=== PATIENT | male | born 1970 | race Caucasian/White ===

== ENCOUNTER 2016-08-11 23:36 | Emergency (ER) | payer OTHER ==
[~2016-08-11] VITALS: Ht 172.7 cm; Wt 81.6 kg
[~2016-08-11 23:36] MED LIST: FLVHFA220 INH; NTRSLP4 SL
[2016-08-11] MEDS ORDERED: LIDOCAINE HCL 2% VISC SOLN 20 ML UDC PO STA (23:41)
[2016-08-11] MEDS ORDERED: ALUMINUM/MAGNESIUM SUSP 30 ML UDC PO STA (23:41)
[2016-08-11] MEDS ORDERED: ONDANSETRON INJ 2 MG/ML 2 ML VIAL IV STA (23:46)
[2016-08-11] MEDS ORDERED: MoRPHine SULFATE 4 MG/ML 1 ML CARP\\VIAL IV STA (23:46)
[2016-08-11] MEDS ORDERED: SODIUM CHLORIDE 0.9% 1000ML 1,000 ML IV STA ×2 (23:46)
[2016-08-11 23:48] VITALS: Ht 172.7 cm; Wt 81.6 kg
[2016-08-11 23:56] LABS: BASO % 0.7 %; BASO ABS # 0.06 K/uL (0-0.2); COMPLETE YES; EOS % 1.7 %; HEMATOCRIT 44.4 % (42-52); IG% 0.2 %; LYMPH % 26.6 %; MEAN CELL VOLUME 86.4 fL (80-100); MEAN CORPUSCULAR HEMOGLOBIN 31.3 pg (25-34); MEAN CORPUSCULAR HGB CONC 36.3 g/dl (32-36); MEAN PLATELET VOLUME 8.9 fL (7.4-10.4); MONO % 6.1 %; NEUT % 64.7 %; PLATELET COUNT 384 K/uL (130-400); RED BLOOD COUNT 5.14 M/uL (4.7-6.1); WHITE BLOOD COUNT 9.02 K/uL (4.8-10.8)
[2016-08-12 00:05] LABS: PARTIAL THROMBOPLASTIN RATIO 0.9; PROTHROMBIN TIME (PATIENT) 10.7 SECONDS (9.0-12.0)
[2016-08-12 00:11] LABS: ISTAT CREATININE 0.8 mg/dl (0.6-1.3); ISTAT IONIZED CALCIUM 1.15 mmol/l (1.12-1.32)
[2016-08-12] MEDS ORDERED: OPTIRAY 320 IV PRN (00:15)
[2016-08-12 00:17] LABS: ALT/SGPT 25 U/L (12-78); AST/SGOT 9 U/L (15-37); BLOOD UREA NITROGEN 10 mg/dl (7-18); BUN/CREATININE RATIO 10.1 (10-20); CALCIUM 9.1 mg/dl (8.5-10.1); CARBON DIOXIDE 25 mmol/L (21-32); CHLORIDE 106 mmol/L (98-107); GLUCOSE 80 mg/dl (70-99); POTASSIUM 3.1 mmol/L (3.5-5.1); SODIUM 144 mmol/L (136-145)
[2016-08-12 00:22] LABS: ALKALINE PHOSPHATASE 64 U/L (45-117)
[2016-08-12] MEDS ORDERED: LIDOCAINE HCL 2% VISC SOLN 20 ML UDC PO STA (01:21)
[2016-08-12] MEDS ORDERED: POTASSIUM CHLORIDE 10 MEQ TABCR PO STA (01:21)
[2016-08-12] MEDS ORDERED: ALUMINUM/MAGNESIUM SUSP 30 ML UDC PO STA (01:21)
[2016-08-12] MEDS ORDERED: SUCRALFATE 1 GM/10 ML UDC PO STA (01:56)
[2016-08-12] MEDS ORDERED: PANTOprazole INJ 40 MG in SYRINGE 0 ML IV ONE (02:00)
[2016-08-12] MEDS ORDERED: MoRPHine SULFATE 4 MG/ML 1 ML CARP\\VIAL IV STA (03:34)
[2016-08-12] MEDS ORDERED: ONDANSETRON HOME PACK 4MG OD TAB PO ONE (04:45)
[2016-08-12] MEDS ORDERED: OXYCODONE IR HOME PACK PO ONE (04:45)
[2016-08-12] MEDS ORDERED: SUCRALFATE 1 GM/10 ML UDC PO ONE (04:45)
--- NOTE | 2016-08-12 04:49 | EMERGENCY ROOM VISIT NOTE ---
History First contact with patient: 23:40 Chief Complaint: CHEST PAIN Stated Complaint: CHEST PAIN Nursing Triage Summary: Pt woke up and started to complain of chest pains around 2129. Pt rated 8/10 as a squeezing chest pain radiating to back and right arm. Pt stated he started dry heaving. Pt has history of esophagitis. Pt was given 4mg zofran, 325 ASA and 1 nitro for EMS. History of Present Illness The patient is a 46 year old male who presents to the Emergency Room with complaints of severe sudden onset of midsternal chest pain that radiates to his back with nausea and dry heaves for the past few hours. Patient has esophagitis and follows with Dr. Sue. His last EGD showed severe esophagitis. He has not missed any of his doses. He continues to smoke. He describes the pain as severe, 9 out of 10. Nothing makes it better or worse. Patient denies fever, chills, dyspnea, abdominal pain, diarrhea, leg pain or swelling, arm pain, neck pain, jaw pain. No black or blood in the vomit. No recent stress test or echocardiogram. No recent travel. No leg pain or swelling. Review of Systems See HPI for pertinent positives & negatives. A total of 10 systems reviewed and were otherwise negative. Past Medical/Surgical History Medical Problems: (1) bleeding problems (2) Eosinophilic esophagitis (3) Gallbladder problem (4) Hypertension (5) Renal infarct (6) Stomach problems (7) ulcers Surgical Problems: (1) Hx of cholecystectomy Family History Diabetes mellitus FH: cancer FH: heart disease FH: lung disease Hypertension Social History Smoking Status: Current Every Day Smoker Alcohol Use: occasionally Drug Use: none Marital Status: Housing Status: lives with family Occupation Status: employed Current/Historical Medications Scheduled Citalopram Hydrobromide (Citalopram Hydrobromide), 40 MG PO DAILY Lisinopril (Zestril), 20 MG PO DAILY Multivitamin (Multivitamin), 1 TABLET PO DAILY Pantoprazole Sodium (Protonix), 40 MG PO BID Ranitidine (Zantac), 150 MG PO BID Scheduled PRN Nitroglycerin (Nitrostat), 0.4 MG SL Q6H PRN for Heartburn Oxycodone Hcl (Oxycodone Hcl), 10 TAB PO QID PRN for Pain Allergies Coded Allergies: Clindamycin (Verified Allergy, Severe, swelling; wheezing, 08/12/16) Penicillins (Verified Allergy, Unknown, `, 08/12/16) Physical Exam Vital Signs Date Time Temp Pulse Resp B/P Pulse Ox O2 Delivery O2 Flow Rate FiO2 08/12/16 04:00 70 15 137/88 96 Room Air 08/12/16 03:58 08/12/16 03:30 68 15 97 08/12/16 03:28 147/99 08/12/16 03:10 68 08/12/16 03:00 58 16 98 08/12/16 02:58 126/87 08/12/16 02:30 61 12 97 08/12/16 02:28 125/85 08/12/16 02:00 66 14 97 08/12/16 02:00 67 18 128/83 99 Room Air 08/12/16 01:00 53 18 132/68 99 Room Air 08/11/16 23:49 90 08/11/16 23:48 36.9 84 18 138/95 99 Room Air 08/11/16 23:48 99 Room Air 08/11/16 23:48 Room Air 08/11/16 23:48 Room Air Physical Exam VITALS: Vitals are noted on the nurse's note and reviewed by myself. Vital signs stable. GENERAL: White male in obvious pain, nondiaphoretic, well-developed well- nourished. SKIN: The skin was without rashes, erythema, edema, or bruising. There is no tenting of the skin. Capillary reflex less than 2 seconds. HEAD: Normocephalic atraumatic. EARS: External auditory canals clear, tympanic membranes pearly maddox without erythema or effusion bilaterally. EYES: Pupils equal round and reactive to light and accommodation. Conjunctivae without injection, sclerae without icterus. Extraocular movements intact. NOSE: Patent, turbinates without inflammation or discharge. MOUTH: Mucous membranes mildly dry. Pharynx without erythema or exudate. Uvula midline. Airway patent. Tongue does not deviate. NECK: Supple without nuchal rigidity. No lymphadenopathy. No thyromegaly. Cervical spine is nontender. No JVD. HEART: Regular rate and rhythm nontender to palpation LUNGS: Clear to auscultation bilaterally without wheezes, rales or rhonchi. No dullness to percussion. No retractions or accessory muscle use. ABDOMEN: Positive bowel sounds x 4. Normal tympanic percussion. Soft, nontender, without masses or organomegaly. Pedraza sign negative. No guarding or rebound tenderness. MUSCULOSKELETAL: No muscle atrophy, erythema, or edema noted. NEURO: Patient was alert and oriented to person place and time. Normal sensation to light and sharp touch. No focal neurological deficits. Medical Decision & Procedures Laboratory Results 08/11/16 23:37 Red Blood Count 5.14, Mean Corpuscular Volume 86.4, Mean Corpuscular Hemoglobin 31.3, Mean Corpuscular Hemoglobin Concent 36.3, Mean Platelet Volume 8.9, Neutrophils (%) (Auto) 64.7, Lymphocytes (%) (Auto) 26.6, Monocytes (%) (Auto) 6.1, Eosinophils (%) (Auto) 1.7, Basophils (%) (Auto) 0.7, Neutrophils # (Auto) 5.84, Lymphocytes # (Auto) 2.40, Monocytes # (Auto) 0.55, Eosinophils # (Auto) 0.15, Basophils # (Auto) 0.06 08/11/16 23:37 Test 08/11/16 23:37 08/11/16 23:45 08/12/16 03:24 White Blood Count 9.02 K/uL (4.8-10.8) Red Blood Count 5.14 M/uL (4.7-6.1) Hemoglobin 16.1 g/dL (14.0-18.0) Hematocrit 44.4 % (42-52) Mean Corpuscular Volume 86.4 fL (80-100) Mean Corpuscular Hemoglobin 31.3 pg (25-34) Mean Corpuscular Hemoglobin Concent 36.3 g/dl (32-36) Platelet Count 384 K/uL (130-400) Mean Platelet Volume 8.9 fL (7.4-10.4) Neutrophils (%) (Auto) 64.7 % Lymphocytes (%) (Auto) 26.6 % Monocytes (%) (Auto) 6.1 % Eosinophils (%) (Auto) 1.7 % Basophils (%) (Auto) 0.7 % Neutrophils # (Auto) 5.84 K/uL (1.4-6.5) Lymphocytes # (Auto) 2.40 K/uL (1.2-3.4) Monocytes # (Auto) 0.55 K/uL (0.11-0.59) Eosinophils # (Auto) 0.15 K/uL (0-0.5) Basophils # (Auto) 0.06 K/uL (0-0.2) RDW Standard Deviation 40.7 fL (36.4-46.3) RDW Coefficient of Variation 12.7 % (11.5-14.5) Immature Granulocyte % (Auto) 0.2 % Immature Granulocyte # (Auto) 0.02 K/uL (0.00-0.02) Prothrombin Time 10.7 SECONDS (9.0-12.0) Prothromb Time International Ratio 1.0 (0.9-1.1) Activated Partial Thromboplast Time 23.7 SECONDS (21.0-31.0) Partial Thromboplastin Ratio 0.9 Est Creatinine Clear Calc Drug Dose 88.3 ml/min Estimated GFR () 103.4 Estimated GFR (Non- 89.2 BUN/Creatinine Ratio 10.1 (10-20) Calcium Level 9.1 mg/dl (8.5-10.1) Total Bilirubin 0.4 mg/dl (0.2-1) Direct Bilirubin < 0.1 mg/dl (0-0.2) Aspartate Amino Transf (AST/SGOT) 9 U/L (15-37) Alanine Aminotransferase (ALT/SGPT) 25 U/L (12-78) Alkaline Phosphatase 64 U/L (45-117) Total Creatine Kinase 56 U/L (39-308) Creatine Kinase MB < 0.5 ng/ml (0.5-3.6) Creatine Kinase MB Ratio (0-3.0) Total Protein 7.8 gm/dl (6.4-8.2) Albumin 4.0 gm/dl (3.4-5.0) Lipase 361 U/L (73-393) Bedside Hemoglobin 16.0 g/dl (14.0-18.0) Bedside Hematocrit 47 % (42-52) Bedside Sodium 142 mEq/L (135-144) Bedside Potassium 3.0 mEq/L (3.3-5.0) Bedside Chloride 102 mEq/L (101-112) Bedside Total CO2 23 mEq/l (24-31) Anion Gap 21.0 mmol/L (16-25) Bedside Blood Urea Nitrogen 10 mg/dl (7-18) Bedside Creatinine 0.8 mg/dl (0.6-1.3) Bedside Glucose (other) 85 mg/dl (70-99) Bedside Ionized Calcium (Peng) 1.15 mmol/l (1.12-1.32) Troponin I < 0.015 ng/ml (0-0.045) Medications Administered Medications (Trade) Dose Ordered Sig/Mandy Route Start Time Stop Time Status Last Admin Dose Admin Morphine Sulfate (MoRPHine SULFATE INJ) 4 mg NOW STAT IV 08/11/16 23:46 08/11/16 23:49 DC 08/12/16 00:40 4 MG Ondansetron HCl 4 mg 4 mg NOW STAT IV 08/11/16 23:46 08/11/16 23:49 DC 08/12/16 00:40 4 MG Sodium Chloride 1,000 ml @ 999 mls/hr Q1H1M STAT IV 08/11/16 23:46 08/12/16 00:46 DC 08/12/16 00:40 999 MLS/HR Sodium Chloride (Nss 1000ml) 1,000 ml @ 125 mls/hr Q8H STAT IV 08/11/16 23:46 08/12/16 07:45 08/12/16 00:41 125 MLS/HR Lidocaine HCl (Viscous Lidocaine 2% Soln) 10 ml NOW STAT PO 08/12/16 01:21 08/12/16 01:22 DC 08/12/16 01:50 10 ML Al Hydroxide/Mg Hydroxide (Maalox Susp) 30 ml NOW STAT PO 08/12/16 01:21 08/12/16 01:22 DC 08/12/16 01:50 30 ML Potassium Chloride (Klor-Con M10) 40 meq NOW STAT PO 08/12/16 01:21 08/12/16 01:22 DC 08/12/16 01:50 40 MEQ Sucralfate 1 gm 1 gm NOW STAT PO 08/12/16 01:56 08/12/16 01:58 DC 08/12/16 02:15 1 GM Pantoprazole Sodium/Syringe (Protonix Inj/ Syringe) 10 ml @ 5 mls/min NOW ONCE IV 08/12/16 02:00 08/12/16 02:01 DC 08/12/16 02:14 5 MLS/MIN Morphine Sulfate (MoRPHine SULFATE INJ) 4 mg NOW STAT IV 08/12/16 03:34 08/12/16 03:35 DC 08/12/16 03:51 4 MG ED Course Prior records/ancillary studies reviewed. Triage Nursing notes reviewed. Additional history obtained from EMS. The patient's history was concerning for chest pain. Differential diagnosis: Etiologies such as cardiac ischemia, aortic dissection, pulmonary embolism, pneumonia, pneumothorax, musculoskeletal, infections, pericarditis, myocarditis , esophageal rupture, gastrointestinal, as well as others were entertained. Physical examination: As above. ER treatment provided: Morphine, Zofran, IV fluids On reassessment the patient felt better. Diagnostic interpretation by me: The electrocardiogram was negative for pathologic change. Normal sinus, normal intervals, no acute ST-T wave changes. Impression normal sinus rhythm interpreted by myself The labs revealed hypokalemia and this is replaced orally. Stable H&H Negative Troponin 2 3 hours prior Imaging studies: Chest x-ray with no acute consolidation, free air or pneumothorax per my interpretation CTA CHEST: Compared to 01/29/16. No evidence of aortic aneurysm or dissection. Suboptimal bolus timing for the evaluation of PE. No large central PE is identified. Mild mid-distal esophageal wall thickening. Correlate clinically for possibility of esophagitis. Minor atelectatic changes. No pneumothorax or pleural effusion. Additional incidental findings similar to prior study. Radiologist: Daphne Kumar M.D. Exam and history seem consistent with patient's known esophagitis. He states he 's done well with Carafate in the past. He was advised to take this for the week. He was strongly encouraged to quit smoking. He was advised at 8 AM this morning to call his GI DrSantosh for follow-up this week. He was advised to return to the ER me the for chest pain, difficulty breathing, black or blood in the stool, worsening signs or symptoms or as needed. Patient had 2 negative troponins 3 hours apart. Normal EKG. Negative CTA. By the evaluation outlined above emergent etiologies such as cardiac ischemia, aortic dissection, pulmonary embolism, pneumonia, pneumothorax, infections, pericarditis, myocarditis, gastrointestinal, as well as others were deemed relatively unlikely. The pt informed about the findings as listed above. All questions were answered and pleased with the treatment. Return instructions were outlined and the patient was discharged in stable condition. Outpatient prescription management: Carafate Referral: The patient was referred back to GI and primary care physician for follow-up in 2 to 3 days for a recheck of the current condition. Case reviewed with my attending Medical Decision As above Impression Primary Impression: Esophagitis Departure Information Dispostion Home / Self-Care Condition GOOD Referrals Donald Velazquez D.O. (PCP) Patient Instructions [facility] Additional Instructions DO NOT drive, drink alcohol, operate machinery, or perform dangerous activities today. You were given medications in the ER that can affect your ability to safely function or operate a vehicle. Carafate 1 g 4 times a day for one week. Recommend that you stop smoking. You need to update your EGD. Zofran(odansetron) tablets 4mg: Take one and allow it to dissolve in your mouth every four to six hours as needed for nausea or vomiting. Oxycodone (OxyIR) 5mg: Take 1-2 pills every four hours for breakthrough pain. Avoid alcohol, operating machinery or dangerous equipment, working on ladders or roofs, DRIVING, or situations where being under the influence may be dangerous. It is recommended to use an [id number] stool softener such as Colace, 100mg twice daily while taking this medication to avoid constipation. Acetaminophen(Tylenol) may be used for fever or pain. Use 1000mg every six hours as needed. Avoid using more than 4000mg in a 24 hour period. Rest and drink plenty of fluids as tolerated. Continue current medications. Avoid strenuous activities and anything that worsens your pain. Resume normal activities once your symptoms resolve. Return to the ER immediately for worsening or persistent chest pain, abdominal pain, vomiting, fevers, black or blood in her stool, difficulty breathing, worsening of your condition, or as needed. Follow up with your [employer] sales consultant in 2-3 days for a recheck of your current condition. Call this morning at 8 AM for a follow-up appointment.
[2016-08-12] MEDS ORDERED: CRFL PO (04:50)
[2016-08-12 05:05] VITALS: BP 130/82; PULSE 64; TEMP 36.9; O2SAT 96
--- NOTE | 2016-08-12 06:42 | DIAGNOSTIC IMAGING REPORT ---
CHEST ONE VIEW PORTABLE CLINICAL HISTORY: Chest pain. COMPARISON STUDY: Chest radiograph and chest CT February 08, 2016. FINDINGS: Lung volumes are normal. Lungs are clear. No pneumothorax or pleural effusion is present. Cardiac size is normal. Mediastinal contours are normal. There is no evidence of pulmonary edema. Mild S-shaped scoliosis of the thoracolumbar spine is incidentally noted. IMPRESSION: No acute cardiopulmonary findings. Electronically signed by: Joseph Macdonald M.D. 08/12/2016 6:41 AM Dictated Date/Time: 08/12/2016 6:40 AM
--- NOTE | 2016-08-12 07:03 | DIAGNOSTIC IMAGING REPORT ---
CT CHEST COMBO ANGIO DISSECTION CLINICAL HISTORY: Severe chest pain radiating to the back. Possible dissection. COMPARISON STUDY: Chest x-ray dated 08/11/2016, CT angiography the chest dated 02/08/2016 FINDINGS: Unenhanced images were obtained through the chest. The patient was then scanned in a dynamic helical fashion during intravenous administration of 91 cc of Optiray 320. There is no evidence of acute aortic hematoma. The thyroid gland is unremarkable. There is no evidence of thoracic aortic aneurysm or dissection. There are no pathologically enlarged axillary, mediastinal, or hilar lymph nodes. There are no pleural effusions. There is no focal pulmonary consolidation. There is borderline esophageal wall thickening. IMPRESSION: 1. No CT evidence of aortic aneurysm or dissection 2. No evidence of focal pulmonary consolidation. No pleural effusions. 3. No pneumothorax 4. No evidence of pathologic adenopathy 5. Borderline mild esophageal wall thickening Electronically signed by: Nirav Kemp M.D. 08/12/2016 7:02 AM Dictated Date/Time: 08/12/2016 6:59 AM
[2016-08-13] MEDS ORDERED: OXYC-164 PO (14:22)
[2016-08-13] MEDS ORDERED: CITA40TA4 PO (16:04)
[2016-08-13] MEDS ORDERED: LISI-792 PO (16:07)
[2016-08-13] MEDS ORDERED: PANT40TA PO (17:35)
[2016-08-13] MEDS ORDERED: ZNTT/150 PO (17:38)
[2016-08-13] MEDS ORDERED: MULT-506 PO (18:17)
[2016-08-14] MEDS ORDERED: CRFL PO (12:29)
[2016-09-11] MEDS ORDERED: SUCR5SUS PO (13:51)
== END 2016-08-12 05:06 | disposition home or self-care (01) ==
LOC: EDBD 23:36 → C.EDB 23:38
DX: K20.9 Esophagitis, unspecified (principal); R07.9 Chest pain, unspecified; F17.210 Nicotine dependence, cigarettes, uncomplicated; I10 Essential (primary) hypertension

== ENCOUNTER 2016-08-13 14:50 | Observation (INO) | payer OTHER ==
[~2016-08-13] VITALS: Ht 172.7 cm; Wt 80.3 kg
[~2016-08-13 14:50] MED LIST changes: +CRFL PO; -FLVHFA220 INH; +OXYC-164 PO
[2016-08-13] MEDS ORDERED: MoRPHine SULFATE 10 MG/ML CARP/VIAL IV STA ×2 (15:25→16:02)
[2016-08-13] MEDS ORDERED: GI COCKTAIL PO STA (15:25)
[2016-08-13] MEDS ORDERED: ONDANSETRON INJ 2 MG/ML 2 ML VIAL IV STA (15:25)
[2016-08-13] MEDS ORDERED: SODIUM CHLORIDE 0.9% 1000ML 1,000 ML IV STA (15:25)
[2016-08-13] MEDS ORDERED: MoRPHine SULFATE 4 MG/ML 1 ML CARP\\VIAL ONE ×2 (15:30→16:16)
[2016-08-13] MEDS ORDERED: LIDOCAINE HCL 2% VISC SOLN 20 ML UDC ONE (15:30)
[2016-08-13] MEDS ORDERED: ALUMINUM/MAGNESIUM SUSP 30 ML UDC ONE (15:30)
--- NOTE | 2016-08-13 15:39 | DIAGNOSTIC IMAGING REPORT ---
CHEST ONE VIEW PORTABLE CLINICAL HISTORY: Atypical chest pain COMPARISON STUDY: 08/11/2016 FINDINGS: The cardiac and mediastinal contours are normal. There is no evidence of focal pulmonary consolidation. There is no evidence of failure. No pleural effusions are visualized.[ IMPRESSION: No active disease in the chest. Electronically signed by: Nirav Kemp M.D. 08/13/2016 3:38 PM Dictated Date/Time: 08/13/2016 3:38 PM
[2016-08-13 15:55] LABS: BASO % 0.8 %; BASO ABS # 0.06 K/uL (0-0.2); COMPLETE YES; EOS % 1.9 %; HEMATOCRIT 47.8 % (42-52); IG% 0.4 %; LYMPH % 30.8 %; LYMPH ABS # 2.46 K/uL (1.2-3.4); MEAN CELL VOLUME 88.7 fL (80-100); MEAN CORPUSCULAR HEMOGLOBIN 31.7 pg (25-34); MEAN CORPUSCULAR HGB CONC 35.8 g/dl (32-36); MEAN PLATELET VOLUME 9.1 fL (7.4-10.4); MONO % 4.8 %; NEUT % 61.3 %; PLATELET COUNT 422 K/uL (130-400); RED BLOOD COUNT 5.39 M/uL (4.7-6.1); WHITE BLOOD COUNT 7.98 K/uL (4.8-10.8)
[2016-08-13] MEDS ORDERED: CITA40TA4 PO (16:04)
[2016-08-13] MEDS ORDERED: LISI-792 PO (16:07)
[2016-08-13] MEDS ORDERED: MoRPHine SULFATE 2 MG/ML CARP ONE (16:15)
[2016-08-13 16:18] LABS: BLOOD UREA NITROGEN 11 mg/dl (7-18); BUN/CREATININE RATIO 8.9 (10-20); CALCIUM 9.8 mg/dl (8.5-10.1); CARBON DIOXIDE 26 mmol/L (21-32); CHLORIDE 106 mmol/L (98-107); GLUCOSE 73 mg/dl (70-99); POTASSIUM 3.9 mmol/L (3.5-5.1); SODIUM 142 mmol/L (136-145)
[2016-08-13 16:41] LABS: CKMB/CK RATIO 1.3 (0-3.0)
[2016-08-13] MEDS ORDERED: PANT40TA PO (17:35)
[2016-08-13] MEDS ORDERED: ZNTT/150 PO (17:38)
[2016-08-13] MEDS ORDERED: NITROGLYCERIN 0.4 MG SL PER TAB CHARGE SL PRN (17:45)
[2016-08-13] MEDS ORDERED: GI COCKTAIL PO PRN (17:45)
[2016-08-13] MEDS ORDERED: ACETAMINOPHEN 325 MG TAB PO PRN (17:45)
[2016-08-13] MEDS ORDERED: ONDANSETRON INJ 2 MG/ML 2 ML VIAL IV PRN (17:45)
[2016-08-13] MEDS ORDERED: MAGNESIUM HYDROXIDE SUSP 30 ML UDC PO PRN (17:45)
[2016-08-13] MEDS ORDERED: POLYETHYLENE (MIRALAX) 17 GM PACK PO PRN (17:45)
[2016-08-13 17:47] VITALS: Ht 172.7 cm; Wt 80.3 kg
--- NOTE | 2016-08-13 17:49 | History and Physical ---
History & Physical Date & Time of Service: Aug 13, 2016 at 17:46 Chief Complaint: Chest Pain, Esphogus Pain Primary Care Physician: Donald Velazquez D.O. History of Present Illness Source: patient The patient is a 46 year old male who presents to the Emergency Room with complaints of chest tightness today. Patient is a known case of severe esophagitis on protonix, ranitidine, sucralfate. Has had multiple ER visits /admissions for chest pain/Esophagitis. EGD X 2- 03/07, 04/06- Moderate to severe esophagitis (Erosive /Exudative) with pathology- heavily inflamed mucosa. Has also had esophageal dilations in past. Follows up with GI outpatient and scheduled for visit next week. . Recent ED visit 2 days ago when he was discharged with recommendation of restarting sucralfate. Troponin, EKG, CT scan to rule out dissection were all normal and thus was discharged with recommendations of follow up with GI in 2-3 days Per patient, he has always had chronic symptoms of difficulty swallowing, issues with food getting stuck, heart burn, chest tightness/pain and has learned to manage by taking care of his diet. Continues to smoke and has been cutting down. Two days ago came with chest pain with radiation to back, nausea. Today after he had sausage it got stuck in chest and after 2 hours of drinking liquids was able to get it down. Following this event, he had chest tightness, squeezing pain , similar to what he has had in past. Associated symptoms - nausea. No vomiting, epigastric pain, heart burn, reflux symptoms associated. No SOB, Diaphoresis, palpitations, cough, fever, chills. In ED, currently he is chest pain free and feeling better. Received IV Morphine 8 mg, GI cocktail and zofran in ED. CXR- no acute abnormalities, Labs- no acute abnormalities, EKG- no acute ST changes. ER physician did try to contact Dr Sue. Will admit him for uncontrolled esophagitis symptoms with re visit to ED in 2 days. . Past Medical/Surgical History Medical Problems: (1) bleeding problems Status: Chronic (2) Gallbladder problem Status: Chronic (3) Hypertension Status: Chronic (4) Renal infarct Status: Resolved (5) Stomach problems Status: Chronic (6) ulcers Status: Chronic Surgical Problems: (1) Hx of cholecystectomy Status: Chronic Family History Diabetes mellitus FH: cancer FH: heart disease FH: lung disease Hypertension Social History Smoking Status: Current Every Day Smoker Drug Use: none Marital Status: Occupational Status: employed Immunizations History of Influenza Vaccine: Yes Influenza Vaccine Date: Jun 01, 2013 History of Tetanus Vaccine?: UNSURE History of Pneumococcal: No History of Hepatitis B Vaccine: No Multi-Drug Resistant Organisms History of MDRO: No Allergies Coded Allergies: Clindamycin (Verified Allergy, Severe, swelling; wheezing, 08/12/16) Penicillins (Verified Allergy, Unknown, `, 08/12/16) Home Medications Scheduled Citalopram Hydrobromide (Citalopram Hydrobromide), 40 MG PO HS Lisinopril (Zestril), 20 MG PO HS Multivitamin (Multivitamin), 1 TABLET PO DAILY Pantoprazole Sodium (Protonix), 40 MG PO BID Ranitidine (Zantac), 150 MG PO BID Sucralfate (Carafate), 10 ML PO QID Scheduled PRN Nitroglycerin (Nitrostat), 0.4 MG SL Q6H PRN for Heartburn Oxycodone Hcl (Oxycodone Hcl), 10 TAB PO QID PRN for Pain Review of Systems Constitutional: No chills, No fever Eyes: No eye pain, No worsening of vision ENT: No hearing loss, No nasal symptoms Respiratory: No cough, No sputum, No wheezing Cardiovascular: + chest pain, No edema Abdomen: + nausea, No diarrhea, No pain, No vomiting Musculoskeletal: No joint pain Genitourinary - Male: No dysuria, No hematuria, No urinary frequency Neurologic: No paralysis Psychiatric: + anxiety, No depression symptoms Endocrine: No fatigue Integumentary: No rash Physical Exam Vital Signs Date Time Temp Pulse Resp B/P Pulse Ox O2 Delivery O2 Flow Rate FiO2 08/13/16 16:20 79 15 170/99 08/13/16 16:15 86 23 08/13/16 16:10 79 19 08/13/16 16:05 79 20 08/13/16 16:00 66 12 08/13/16 15:59 170/99 08/13/16 15:55 84 25 08/13/16 15:50 64 14 08/13/16 15:45 83 21 08/13/16 15:42 84 20 160/101 99 Room Air 08/13/16 15:42 160/101 08/13/16 15:40 84 19 08/13/16 15:35 75 15 08/13/16 15:34 83 08/13/16 14:57 36.9 86 20 154/103 100 Room Air General Appearance: no apparent distress Head: normocephalic, atraumatic Eyes: PERRL ENT: hearing grossly normal Neck: supple, no JVD Respiratory/Chest: lungs clear, normal breath sounds, no respiratory distress, no accessory muscle use Cardiovascular: regular rate, rhythm, no edema, no JVD Abdomen/GI: normal bowel sounds, non tender, soft Extremities/Musculoskelatal: no calf tenderness, no pedal edema Neurologic/Psych: no motor/sensory deficits, alert, oriented x 3 Diagnostics Laboratory Results Results Past 24 Hours Test 08/13/16 15:20 Range/Units White Blood Count 7.98 4.8-10.8 K/uL Red Blood Count 5.39 4.7-6.1 M/uL Hemoglobin 17.1 14.0-18.0 g/dL Hematocrit 47.8 42-52 % Mean Corpuscular Volume 88.7 80-100 fL Mean Corpuscular Hemoglobin 31.7 25-34 pg Mean Corpuscular Hemoglobin Concent 35.8 32-36 g/dl Platelet Count 422 130-400 K/uL Mean Platelet Volume 9.1 7.4-10.4 fL Neutrophils (%) (Auto) 61.3 % Lymphocytes (%) (Auto) 30.8 % Monocytes (%) (Auto) 4.8 % Eosinophils (%) (Auto) 1.9 % Basophils (%) (Auto) 0.8 % Neutrophils # (Auto) 4.90 1.4-6.5 K/uL Lymphocytes # (Auto) 2.46 1.2-3.4 K/uL Monocytes # (Auto) 0.38 0.11-0.59 K/uL Eosinophils # (Auto) 0.15 0-0.5 K/uL Basophils # (Auto) 0.06 0-0.2 K/uL RDW Standard Deviation 42.5 36.4-46.3 fL RDW Coefficient of Variation 13.0 11.5-14.5 % Immature Granulocyte % (Auto) 0.4 % Immature Granulocyte # (Auto) 0.03 0.00-0.02 K/uL Sodium Level 142 136-145 mmol/L Potassium Level 3.9 3.5-5.1 mmol/L Chloride Level 106 98-107 mmol/L Carbon Dioxide Level 26 21-32 mmol/L Anion Gap 10.0 3-11 mmol/L Blood Urea Nitrogen 11 7-18 mg/dl Creatinine 1.20 0.60-1.40 mg/dl Est Creatinine Clear Calc Drug Dose 73.6 ml/min Estimated GFR () 83.0 Estimated GFR (Non- 71.6 BUN/Creatinine Ratio 8.9 10-20 Random Glucose 73 70-99 mg/dl Calcium Level 9.8 8.5-10.1 mg/dl Total Creatine Kinase 53 39-308 U/L Creatine Kinase MB 0.7 0.5-3.6 ng/ml Creatine Kinase MB Ratio 1.3 0-3.0 Troponin I < 0.015 0-0.045 ng/ml Diagnostic Radiology CXR- no active disease EKG- no acute ischemic changes Impression Assessment and Plan CHEST PAIN, LIKELY SECONDARY TO SEVERE ESOPHAGITIS Less likely to be cardiac. Patient is a known case of severe esophagitis on protonix, ranitidine, sucralfate. Has had multiple ER visits /admissions for chest pain/Esophagitis. EGD X 2- 03/07, 04/06- Moderate to severe esophagitis (Erosive / Exudative) with pathology- heavily inflamed mucosa. Has also had esophageal dilations in past. Follows up with GI outpatient. Recent ED visit 2 days ago when she was discharged with recommendation of restarting sucralfate. Troponin x 2 negative, EKG showed no acute changes and CT scan - negative for dissection, acute findings -Risk factors: Smoking- Cessation education given -Continue with Protonix 40 mg BID, Sucralfate 1 gram QID , Ranitidine 150 mg BID , GI Cocktail PRN -EKG- no acute changes, EKG in AM, Troponin x 3 -GI consult given symptoms refractory to Rx. HYPERTENSION - Elevated Likely secondary to missing medications -Continue with lisinopril daily ANXIETY -Stable DVT PROPHYLAXIS -Low risk. Encourage ambulation SCDS FULL CODE per patient DISPOSITION Observation status Level of Care Med/Surg Resuscitation Status FULL RESUSCITATION VTE Prophylaxis VTE Risk Assessment Done? Y/N: Yes Risk Level: Low Given or contraindicated: T.E.D. Stockings, SCD's
[2016-08-13] MEDS ORDERED: ALUMINUM/MAGNESIUM SUSP 72 ML, LIDOCAINE HCL 2% VISCOUS SOLN 24 ML, BARCODE IDENTIFIER ... PO PRN ×2 (18:00)
[2016-08-13] MEDS ORDERED: MULT-506 PO (18:17)
[2016-08-13 19:26] VITALS: BP 146/83; PULSE 69; TEMP 36.8; O2SAT 97
[2016-08-13] MEDS: OXYCODONE HCL IR 5 MG TAB (IMMEDIATE RELEASE) PO PRN (19:44)
--- NOTE | 2016-08-13 19:59 | EMERGENCY ROOM VISIT NOTE ---
History Report prepared by Shady: Neri Liu Under the Supervision of: Dr. Thang Amaral M.D. First contact with patient: 15:19 Chief Complaint: CHEST PAIN Stated Complaint: CHEST PAIN, ESPHOGUS PAIN Nursing Triage Summary: pt was here on thursday night for eunice thomasonx . was told had esophaus problem. has appt with gi dr on september 16. breast bone to middle back chest pain feels like squeezing. feels nauseated, has dry heaves History of Present Illness The patient is a 46 year old male who presents to the Emergency Room with complaints of waxing and waning central chest pain beginning two days prior to arrival. He describes his discomfort as squeezing and currently rates his discomfort as an 8/10 in severity. The patient associates chest pain that radiates to his back and nausea with today's symptoms. He notes he was seen in the ED two days ago and was diagnosed with esophagitis. The patient states he has always had issues with his esophagus, but it has worsened recently. He notes he is on Carafate, Protonix, and Ranitidine. The patient denies vomiting, heart problems, and new medication changes. 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 A total of 10 systems reviewed and were otherwise negative. Past Medical & Surgical Medical Problems: (1) bleeding problems (2) Eosinophilic esophagitis (3) Esophagitis (4) Gallbladder problem (5) Hypertension (6) Renal infarct (7) Stomach problems (8) ulcers Surgical Problems: (1) Hx of cholecystectomy Family History Diabetes mellitus FH: cancer FH: heart disease FH: lung disease Hypertension Social History Smoking Status: Current Every Day Smoker Alcohol Use: occasionally Drug Use: none Marital Status: Housing Status: lives with family Occupation Status: employed Current/Historical Medications Scheduled Citalopram Hydrobromide (Citalopram Hydrobromide), 40 MG PO HS Lisinopril (Zestril), 20 MG PO HS Multivitamin (Multivitamin), 1 TABLET PO DAILY Pantoprazole Sodium (Protonix), 40 MG PO BID Ranitidine (Zantac), 150 MG PO BID Sucralfate (Carafate), 10 ML PO QID Scheduled PRN Nitroglycerin (Nitrostat), 0.4 MG SL Q6H PRN for Heartburn Oxycodone Hcl (Oxycodone Hcl), 10 TAB PO QID PRN for Pain Allergies Coded Allergies: Clindamycin (Verified Allergy, Severe, swelling; wheezing, 08/12/16) Penicillins (Verified Allergy, Unknown, `, 08/12/16) Physical Exam Vital Signs Date Time Temp Pulse Resp B/P Pulse Ox O2 Delivery O2 Flow Rate FiO2 08/13/16 17:29 169/95 08/13/16 17:25 74 13 08/13/16 17:15 151/87 08/13/16 16:59 151/87 08/13/16 16:55 72 16 08/13/16 16:29 158/92 08/13/16 16:25 72 12 08/13/16 16:20 79 15 170/99 08/13/16 16:15 86 23 08/13/16 16:10 79 19 08/13/16 16:05 79 20 08/13/16 16:00 66 12 08/13/16 15:59 170/99 08/13/16 15:55 84 25 08/13/16 15:50 64 14 08/13/16 15:45 83 21 08/13/16 15:42 84 20 160/101 99 Room Air 08/13/16 15:42 160/101 08/13/16 15:40 84 19 08/13/16 15:35 75 15 08/13/16 15:34 83 08/13/16 14:57 36.9 86 20 154/103 100 Room Air Physical Exam GENERAL: Patient is very uncomfortable appearing and in moderate distress. HEENT: No acute trauma, normocephalic atraumatic, mucous membranes moist, no nasal congestion, no scleral icterus. NECK: No stridor, no adenopathy, no meningismus, trachea is midline. LUNGS: No dyspnea. Clear to auscultation and equal bilaterally. No wheeze, no rhonchi. HEART: Regular rate and rhythm. No murmurs, rubs, gallops appreciated. ABDOMEN: Soft, nontender, bowel sounds positive, no masses appreciated, no peritonitis. BACK: No midline tenderness, no CVA tenderness EXTREMITIES: Normal motion all extremities, no cyanosis, no edema. NEUROLOGIC: Alert and oriented, no acute motor or sensory deficits, no focal weakness, cranial nerves grossly intact. SKIN: No rash, no jaundice, no diaphoresis. Medical Decision & Procedures ER Provider Diagnostic Interpretation: X ray results are stated below per my interpretation and the radiologist's interpretation. CHEST ONE VIEW PORTABLE CLINICAL HISTORY: Atypical chest pain COMPARISON STUDY: 08/11/2016 FINDINGS: The cardiac and mediastinal contours are normal. There is no evidence of focal pulmonary consolidation. There is no evidence of failure. No pleural effusions are visualized.[ IMPRESSION: No active disease in the chest. Electronically signed by: Nirav Kemp M.D. 08/13/2016 3:38 PM Laboratory Results 08/13/16 15:20 Red Blood Count 5.39, Mean Corpuscular Volume 88.7, Mean Corpuscular Hemoglobin 31.7, Mean Corpuscular Hemoglobin Concent 35.8, Mean Platelet Volume 9.1, Neutrophils (%) (Auto) 61.3, Lymphocytes (%) (Auto) 30.8, Monocytes (%) (Auto) 4.8, Eosinophils (%) (Auto) 1.9, Basophils (%) (Auto) 0.8, Neutrophils # (Auto) 4.90, Lymphocytes # (Auto) 2.46, Monocytes # (Auto) 0.38, Eosinophils # (Auto) 0.15, Basophils # (Auto) 0.06 08/13/16 15:20 Test 08/13/16 15:20 White Blood Count 7.98 K/uL (4.8-10.8) Red Blood Count 5.39 M/uL (4.7-6.1) Hemoglobin 17.1 g/dL (14.0-18.0) Hematocrit 47.8 % (42-52) Mean Corpuscular Volume 88.7 fL (80-100) Mean Corpuscular Hemoglobin 31.7 pg (25-34) Mean Corpuscular Hemoglobin Concent 35.8 g/dl (32-36) Platelet Count 422 K/uL (130-400) Mean Platelet Volume 9.1 fL (7.4-10.4) Neutrophils (%) (Auto) 61.3 % Lymphocytes (%) (Auto) 30.8 % Monocytes (%) (Auto) 4.8 % Eosinophils (%) (Auto) 1.9 % Basophils (%) (Auto) 0.8 % Neutrophils # (Auto) 4.90 K/uL (1.4-6.5) Lymphocytes # (Auto) 2.46 K/uL (1.2-3.4) Monocytes # (Auto) 0.38 K/uL (0.11-0.59) Eosinophils # (Auto) 0.15 K/uL (0-0.5) Basophils # (Auto) 0.06 K/uL (0-0.2) RDW Standard Deviation 42.5 fL (36.4-46.3) RDW Coefficient of Variation 13.0 % (11.5-14.5) Immature Granulocyte % (Auto) 0.4 % Immature Granulocyte # (Auto) 0.03 K/uL (0.00-0.02) Anion Gap 10.0 mmol/L (3-11) Est Creatinine Clear Calc Drug Dose 73.6 ml/min Estimated GFR () 83.0 Estimated GFR (Non- 71.6 BUN/Creatinine Ratio 8.9 (10-20) Calcium Level 9.8 mg/dl (8.5-10.1) Total Creatine Kinase 53 U/L (39-308) Creatine Kinase MB 0.7 ng/ml (0.5-3.6) Creatine Kinase MB Ratio 1.3 (0-3.0) Laboratory results as reviewed by me. Medications Administered Medications (Trade) Dose Ordered Sig/Mandy Route Start Time Stop Time Status Last Admin Dose Admin Sodium Chloride (Nss 1000ml) 1,000 ml @ 999 mls/hr Q1H1M STAT IV 08/13/16 15:25 08/13/16 16:25 DC 08/13/16 15:41 999 MLS/HR Ondansetron HCl (Zofran Inj) 4 mg NOW STAT IV 08/13/16 15:25 08/13/16 15:27 DC 08/13/16 15:38 4 MG Morphine Sulfate (MoRPHine SULFATE INJ) 8 mg STK-MED ONCE .ROUTE 08/13/16 15:30 08/13/16 15:32 DC 08/13/16 15:39 8 MG Al Hydroxide/Mg Hydroxide (Maalox Susp) 30 ml STK-MED ONCE .ROUTE 08/13/16 15:30 08/13/16 15:33 DC 08/13/16 15:39 30 ML Lidocaine HCl (Viscous Lidocaine 2% Soln) 20 ml STK-MED ONCE .ROUTE 08/13/16 15:30 08/13/16 15:33 DC 08/13/16 15:39 20 ML Morphine Sulfate (MoRPHine SULFATE INJ) 2 mg STK-MED ONCE .ROUTE 08/13/16 16:15 08/13/16 16:17 DC 08/13/16 16:20 2 MG Morphine Sulfate (MoRPHine SULFATE INJ) 4 mg STK-MED ONCE .ROUTE 08/13/16 16:16 08/13/16 16:18 DC 08/13/16 16:20 4 MG Oxycodone HCl (Roxicodone Immediate Rel Tab) 10 mg QID PRN PO 08/13/16 17:45 09/12/16 17:44 08/13/16 19:44 10 MG ECG Indication: chest pain Rate (beats per minute): 73 Rhythm: normal sinus Findings: no acute ischemic change, no ectopy Comparison ECG Date: 08/11/2016 Change: no significant change ED Course 1521: The patient was evaluated in room C9. A complete history and physical exam was performed. 1525: Ordered Zofran Inj 4 mg IV, Sodium Chloride 1,000 ml @ 999 mls/hr IV, Gi Cocktail 24 ml PO, Morphine Sulfate 8 mg IV. 1554: Reevaluated the patient at this time, and he states his chest pain has improved a little. 1602: Ordered Morphine Sulfate 6 mg IV. 1603: [facility] was paged. 1611: It is noted [facility] is out of town. 1626: I spoke to [facility] about the patient's case, and he will follow the patient for further evaluation. Medical Decision Differential: Cardiac Ischemia (STEMI, NSTEMI, Unstable Angina, etc), Aortic Dissection, Arrhythmia, Pulmonary Embolism, Pneumonia, Pneumothorax, MSK, Infectious, Pericarditis/Myocarditis, Esophageal Rupture, Gastrointestinal, amongst other pathologies entertained. 46 yr old male with known history of severe esophageal disease notes rapid worsening recently despite max therapies. Already with one ED visit a few days ago though with persistently worsening pain and inability to swallow correctly. Now taking over an hour to swallow liquids. Is tolerating secretions and breathing comfortably. EKG clear and trop negative. CTA a few days ago negative other then esophageal swelling noted. Labs otherwise look OK. Pain tolerable after second round narcotics. Patient stable though no longer tolerating PO and clearly is very uncomfortable. Will bring in for this and GI evaluation. Consults Time Called: 1620 [facility] Returned Call: 1626 I spoke to [facility] about the patient's case, and he will follow the patient for further evaluation. Impression Primary Impression: Esophagitis Additional Impression: Intractable pain Scribe Attestation The scribe's documentation has been prepared under my direction and personally reviewed by me in its entirety. I confirm that the note above accurately reflects all work, treatment, procedures, and medical decision making performed by me. Departure Information Dispostion Being Evaluated By [facility] ([facility]) Referrals Donald Velazquez D.O. (PCP) Problem Qualifiers
[2016-08-13] MEDS ORDERED: IV FLUIDS COMPLETED PRN (20:30)
[2016-08-13] MEDS ORDERED: LISINOPRIL 20 MG TAB PO SCH (21:00)
[2016-08-13] MEDS ORDERED: CITALOPRAM 40 MG TAB PO SCH (21:00)
[2016-08-13] MEDS: RANITIDINE HCL 150 MG TAB PO SCH (21:35)
[2016-08-13] MEDS: PANTOprazole SOD 40 MG TAB PO SCH (21:52)
[2016-08-13] MEDS: SUCRALFATE 1 GM/10 ML UDC PO SCH (21:52)
[2016-08-13 23:49] VITALS: BP 134/83; PULSE 53; TEMP 36.8; O2SAT 95
[2016-08-14] MEDS: HYDROmorphone INJ 0.5 MG/0.5 ML SYR IV PRN ×3 (00:13→10:56)
[2016-08-14 03:17] LABS: HEMATOCRIT 39.7 % (42-52); MEAN CORPUSCULAR HEMOGLOBIN 30.6 pg (25-34); MEAN CORPUSCULAR HGB CONC 34.8 g/dl (32-36); MEAN PLATELET VOLUME 8.6 fL (7.4-10.4); PLATELET COUNT 318 K/uL (130-400); RED BLOOD COUNT 4.51 M/uL (4.7-6.1); WHITE BLOOD COUNT 8.33 K/uL (4.8-10.8)
[2016-08-14 03:20] LABS: BLOOD UREA NITROGEN 12 mg/dl (7-18); BUN/CREATININE RATIO 10.5 (10-20); CALCIUM 8.3 mg/dl (8.5-10.1); CARBON DIOXIDE 27 mmol/L (21-32); CHLORIDE 107 mmol/L (98-107); GLUCOSE 116 mg/dl (70-99); POTASSIUM 3.7 mmol/L (3.5-5.1); SODIUM 143 mmol/L (136-145)
[2016-08-14] MEDS: OXYCODONE HCL IR 5 MG TAB (IMMEDIATE RELEASE) PO PRN (03:56)
[2016-08-14 08:00] VITALS: BP 123/83; PULSE 66; TEMP 36.8; O2SAT 95
[2016-08-14] MEDS: RANITIDINE HCL 150 MG TAB PO SCH (08:46)
[2016-08-14] MEDS: PANTOprazole SOD 40 MG TAB PO SCH (08:47)
[2016-08-14] MEDS: SUCRALFATE 1 GM/10 ML UDC PO SCH ×2 (08:47→13:21)
[2016-08-14] MEDS ORDERED: MULTIVITAMIN TAB PO SCH (09:00)
--- NOTE | 2016-08-14 09:00 | Gastrointestinal Consultation ---
Gastrointestinal Consultation Date of Consultation: Aug 14, 2016 Consulting Physician: Jacque Reason for Consultation: esophagitis History of Present Illness Patient is a 46 year old male with past medical history significant for severe esophagitis, cervical disk disease on daily narcotics who is s/p cholecystectomy. He presented to the ED for the second time this week with chest pain. In the ED, a cardiac source of his pain was ruled out with EKG, troponin and CT scan to rule out dissection, he was admitted given his second ER visit in one week. He reports worsening symptoms of his reflux after running out of his prescription of Carafate. His last EGD was with Dr. Sue on with Kita Grade III esophagitis. Despite continued daily PPI and ranitidine, his reflux has progressed since diagnosis and he is experiencing heart burn that radiates to his left back and shoulder, chest tightness, epigastric burning and food getting stuck in his esophagus. This most recently occurred a few days ago after he ate steak at work. He reports that in about 2/ 3 hours he felt the food drop and was not having any issues. Today he reports his pain is well maintained after morphine at 2/10. He is not experiencing any upper symptoms today during exam. He is scheduled for a repeat EGD on 09/16/[address] Seu. EGD 04/11/16: Mariely-Mccormack Grade III (circumferential lesion, erosive or exudative) esophagitis with no bleeding was found in the lower third of the esophagus. Biopsies were taken with a cold forceps for histology. Estimated blood loss was minimal.The stomach was normal. EGD 03/04/16: Moderately severe esophagitis with no bleeding was found 28 to 38 cm from the incisors. Biopsies were taken with a cold forceps for histology. Estimated blood loss was minimal. The stomach was normal. The examined duodenum was normal. Colonoscopy 03/04/16: The perianal and digital rectal examinations were normal. Pertinent negatives include normal sphincter tone and no palpable rectal lesions. A moderate amount of semi-liquid stool was found in the entire colon. Internal hemorrhoids were found during retroflexion. The hemorrhoids were moderate. The exam was otherwise without abnormality. Past Medical/Surgical History Medical Problems: (1) Esophagitis Status: Acute (2) GI bleed Status: Acute (3) Intractable pain Status: Acute (4) Unable to eat solid foods Status: Acute (5) Unable to take medication Status: Acute Family History Diabetes mellitus FH: cancer FH: heart disease FH: lung disease Hypertension Social History Smoking Status: Current Every Day Smoker Alcohol Use: occasionally Drug Use: none Marital Status: Housing Status: lives with family Occupation Status: employed Allergies Coded Allergies: Clindamycin (Verified Allergy, Severe, swelling; wheezing, 08/12/16) Penicillins (Verified Allergy, Unknown, `, 08/12/16) Current Medications Home Meds and Scripts Medications Dose Route/Sig Max Daily Dose Days Date Category Carafate (Sucralfate) 1 Gm/10 Ml Ivette 10 Ml PO QID 7 08/12/16 Rx Nitrostat (Nitroglycerin) 0.4 Mg/1 Tab Subl 0.4 Mg SL Q6H PRN 01/20/16 Rx Oxycodone Hcl 10 Mg Tab 10 Tab PO QID PRN 01/19/16 Reported Zantac (Ranitidine HCl) 150 Mg Tab 150 Mg PO BID 06/22/13 Reported Protonix (Pantoprazole Sodium) 40 Mg Tab 40 Mg PO BID 06/22/13 Reported Multivitamin (Multivitamins) Tab 1 Tablet PO DAILY 05/29/13 Reported Zestril (Lisinopril) 20 Mg Tab 20 Mg PO HS 10/24/12 Reported Citalopram Hydrobromide 40 Mg Tab 40 Mg PO HS 10/24/12 Reported Review of Systems Constitutional: No chills, No fever Respiratory: No cough, No shortness of breath Cardiac: No chest pain, No edema Abdomen: No GI bleeding, No constipation, No diarrhea, No dysphagia, No nausea , No odynophagia, No pain, No vomiting Physical Exam Date Time Temp Pulse Resp B/P Pulse Ox O2 Delivery O2 Flow Rate FiO2 08/14/16 08:00 36.8 66 18 123/83 95 Room Air 08/13/16 23:49 36.8 53 20 134/83 95 Room Air 08/13/16 19:37 Room Air 08/13/16 19:26 36.8 69 20 146/83 97 Room Air 08/13/16 18:25 72 12 08/13/16 18:25 36.9 79 15 170/99 99 08/13/16 17:59 165/89 08/13/16 17:55 79 15 08/13/16 17:47 Room Air 08/13/16 17:29 169/95 08/13/16 17:25 74 13 08/13/16 17:15 151/87 08/13/16 16:59 151/87 08/13/16 16:55 72 16 08/13/16 16:29 158/92 08/13/16 16:25 72 12 08/13/16 16:20 79 15 170/99 08/13/16 16:15 86 23 08/13/16 16:10 79 19 08/13/16 16:05 79 20 08/13/16 16:00 66 12 08/13/16 15:59 170/99 08/13/16 15:55 84 25 08/13/16 15:50 64 14 08/13/16 15:45 83 21 08/13/16 15:42 84 20 160/101 99 Room Air 08/13/16 15:42 160/101 08/13/16 15:40 84 19 08/13/16 15:35 75 15 08/13/16 15:34 83 08/13/16 14:57 36.9 86 20 154/103 100 Room Air General Appearance: no apparent distress (patient is sitting upright in bed on his phone) Eyes: PERRL ENT: hearing grossly normal Neck: supple, trachea midline Respiratory/Chest: lungs clear, normal breath sounds, no respiratory distress, no accessory muscle use Cardiovascular: regular rate, rhythm, no edema, no gallop, no JVD, no murmur Abdomen: normal bowel sounds, soft, no organomegaly, no pulsatile mass, + tenderness (epigastric tenderness with palpation) Neurologic/Psych: alert, normal mood/affect, oriented x 3 Skin: normal color, no jaundice, warm/dry, no rash Laboratory Results Last 24 Hours Test 08/13/16 15:20 08/13/16 20:42 08/14/16 02:46 White Blood Count 7.98 K/uL 8.33 K/uL Red Blood Count 5.39 M/uL 4.51 M/uL Hemoglobin 17.1 g/dL 13.8 g/dL Hematocrit 47.8 % 39.7 % Mean Corpuscular Volume 88.7 fL 88.0 fL Mean Corpuscular Hemoglobin 31.7 pg 30.6 pg Mean Corpuscular Hemoglobin Concent 35.8 g/dl 34.8 g/dl Platelet Count 422 K/uL 318 K/uL Mean Platelet Volume 9.1 fL 8.6 fL Neutrophils (%) (Auto) 61.3 % Lymphocytes (%) (Auto) 30.8 % Monocytes (%) (Auto) 4.8 % Eosinophils (%) (Auto) 1.9 % Basophils (%) (Auto) 0.8 % Neutrophils # (Auto) 4.90 K/uL Lymphocytes # (Auto) 2.46 K/uL Monocytes # (Auto) 0.38 K/uL Eosinophils # (Auto) 0.15 K/uL Basophils # (Auto) 0.06 K/uL RDW Standard Deviation 42.5 fL 41.9 fL RDW Coefficient of Variation 13.0 % 13.0 % Immature Granulocyte % (Auto) 0.4 % Immature Granulocyte # (Auto) 0.03 K/uL Sodium Level 142 mmol/L 143 mmol/L Potassium Level 3.9 mmol/L 3.7 mmol/L Chloride Level 106 mmol/L 107 mmol/L Carbon Dioxide Level 26 mmol/L 27 mmol/L Anion Gap 10.0 mmol/L 9.0 mmol/L Blood Urea Nitrogen 11 mg/dl 12 mg/dl Creatinine 1.20 mg/dl 1.10 mg/dl Est Creatinine Clear Calc Drug Dose 73.6 ml/min 80.3 ml/min Estimated GFR () 83.0 92.2 Estimated GFR (Non- 71.6 79.5 BUN/Creatinine Ratio 8.9 10.5 Random Glucose 73 mg/dl 116 mg/dl Calcium Level 9.8 mg/dl 8.3 mg/dl Total Creatine Kinase 53 U/L Creatine Kinase MB 0.7 ng/ml Creatine Kinase MB Ratio 1.3 Troponin I < 0.015 ng/ml < 0.015 ng/ml < 0.015 ng/ml Impression Patient is a 46 year old male with poorly controlled esophagitis. Most recent EGD was in March 2016 with Savary-Mccormack Grade III esophagitis. He is experiencing daily symptoms despite PPI and ranitidine. He ate breakfast this morning and is feeling better. No alarm symptoms (weight loss, hematemesis, melena) and a stable HGB at 17 before IV fluid bolus. Differentials include esophagitis, gastritis, PUD. Plan 40 mg PPI BID ranitidine 150 mg BID Carafate 1 gm QID Continue diet as tolerated Continue diet as tolerated as outpatient - avoid foods that tend to stick like meets and dry breads smoking cessation avoid caffeine and ETOH avoid spicy/acidic food Follow up with GI in about 1-2 weeks Keep EGD on 09/16/16
[2016-08-14 11:56] VITALS: BP 123/83; PULSE 66; TEMP 36.8; O2SAT 95
--- NOTE | 2016-08-14 12:15 | Progress Note ---
Internal Med Progress Note Date of Service: Aug 14, 2016. Provider Documentation: SUBJECTIVE: Patient is doing well. Denies any chest pain, difficulty swallowing, heart burn Tolerated PO well. OBJECTIVE: Vital Signs-as noted below Exam: General-AAOX3, no distress Neck-Supple Lungs-Clear Heart-S1, S2 normal; No murmur Abdomen-Soft, non tender, non distended, BS present Extremities-No edema Lab data as noted below. ASSESSMENT & PLAN: CHEST PAIN, LIKELY SECONDARY TO SEVERE ESOPHAGITIS - Resolved Less likely to be cardiac. Patient is a known case of severe esophagitis on protonix, ranitidine, sucralfate. Has had multiple ER visits /admissions for chest pain/Esophagitis. EGD X 2- 03/07, 04/06- Moderate to severe esophagitis (Erosive / Exudative) with pathology- heavily inflamed mucosa. Has also had esophageal dilations in past. Follows up with GI outpatient. Recent ED visit 2 days ago when he was discharged with recommendation of restarting sucralfate. Troponin x 2 negative, EKG showed no acute changes and CT scan - negative for dissection, acute findings -Clinically better, tolerating PO well -Risk factors: Smoking- Cessation education given -Continue with Protonix 40 mg BID, Sucralfate 1 gram QID , Ranitidine 150 mg BID , GI Cocktail PRN -EKG- no acute changes, Troponin x 3 - Negative -GI consult given symptoms refractory to Rx. PLAN: Per d/w GI- continue with Protonix PO BID, Ranitidine, Sucralfate. Will arrange for F/up appt in 1-2 weeks and to keep scheduled EGD on 09/16/16. HYPERTENSION - stable Likely secondary to missing medications -Continue with lisinopril daily ANXIETY -Stable DVT PROPHYLAXIS -Low risk. Encourage ambulation SCDS FULL CODE per patient DISPOSITION Observation status Okay to discharge today Cleared by GI- Follow up in 2-3 weeks Vital Signs: Date Time Temp Pulse Resp B/P Pulse Ox O2 Delivery O2 Flow Rate FiO2 08/14/16 11:56 36.8 66 18 95 Room Air 08/14/16 08:00 36.8 66 18 123/83 95 Room Air 08/13/16 23:49 36.8 53 20 134/83 95 Room Air 08/13/16 19:37 Room Air 08/13/16 19:26 36.8 69 20 146/83 97 Room Air 08/13/16 18:25 72 12 08/13/16 18:25 36.9 79 15 170/99 99 08/13/16 17:59 165/89 08/13/16 17:55 79 15 08/13/16 17:47 Room Air 08/13/16 17:29 169/95 08/13/16 17:25 74 13 08/13/16 17:15 151/87 08/13/16 16:59 151/87 08/13/16 16:55 72 16 08/13/16 16:29 158/92 08/13/16 16:25 72 12 08/13/16 16:20 79 15 170/99 08/13/16 16:15 86 23 08/13/16 16:10 79 19 08/13/16 16:05 79 20 08/13/16 16:00 66 12 08/13/16 15:59 170/99 08/13/16 15:55 84 25 08/13/16 15:50 64 14 08/13/16 15:45 83 21 08/13/16 15:42 84 20 160/101 99 Room Air 08/13/16 15:42 160/101 08/13/16 15:40 84 19 08/13/16 15:35 75 15 08/13/16 15:34 83 08/13/16 14:57 36.9 86 20 154/103 100 Room Air Lab Results: Results Past 24 Hours Test 08/13/16 15:20 08/13/16 20:42 08/14/16 02:46 Range/Units White Blood Count 7.98 8.33 4.8-10.8 K/uL Red Blood Count 5.39 4.51 4.7-6.1 M/uL Hemoglobin 17.1 13.8 14.0-18.0 g/dL Hematocrit 47.8 39.7 42-52 % Mean Corpuscular Volume 88.7 88.0 80-100 fL Mean Corpuscular Hemoglobin 31.7 30.6 25-34 pg Mean Corpuscular Hemoglobin Concent 35.8 34.8 32-36 g/dl Platelet Count 422 318 130-400 K/uL Mean Platelet Volume 9.1 8.6 7.4-10.4 fL Neutrophils (%) (Auto) 61.3 % Lymphocytes (%) (Auto) 30.8 % Monocytes (%) (Auto) 4.8 % Eosinophils (%) (Auto) 1.9 % Basophils (%) (Auto) 0.8 % Neutrophils # (Auto) 4.90 1.4-6.5 K/uL Lymphocytes # (Auto) 2.46 1.2-3.4 K/uL Monocytes # (Auto) 0.38 0.11-0.59 K/uL Eosinophils # (Auto) 0.15 0-0.5 K/uL Basophils # (Auto) 0.06 0-0.2 K/uL RDW Standard Deviation 42.5 41.9 36.4-46.3 fL RDW Coefficient of Variation 13.0 13.0 11.5-14.5 % Immature Granulocyte % (Auto) 0.4 % Immature Granulocyte # (Auto) 0.03 0.00-0.02 K/uL Sodium Level 142 143 136-145 mmol/L Potassium Level 3.9 3.7 3.5-5.1 mmol/L Chloride Level 106 107 98-107 mmol/L Carbon Dioxide Level 26 27 21-32 mmol/L Anion Gap 10.0 9.0 3-11 mmol/L Blood Urea Nitrogen 11 12 7-18 mg/dl Creatinine 1.20 1.10 0.60-1.40 mg/dl Est Creatinine Clear Calc Drug Dose 73.6 80.3 ml/min Estimated GFR () 83.0 92.2 Estimated GFR (Non- 71.6 79.5 BUN/Creatinine Ratio 8.9 10.5 10-20 Random Glucose 73 116 70-99 mg/dl Calcium Level 9.8 8.3 8.5-10.1 mg/dl Total Creatine Kinase 53 39-308 U/L Creatine Kinase MB 0.7 0.5-3.6 ng/ml Creatine Kinase MB Ratio 1.3 0-3.0 Troponin I < 0.015 < 0.015 < 0.015 0-0.045 ng/ml
[2016-08-14] MEDS ORDERED: CRFL PO (12:29)
--- NOTE | 2016-08-14 12:33 | Discharge Summary ---
Discharge Summary Date of Service Aug 14, 2016. Discharge Summary Admission Date: Aug 13, 2016 at 17:46 Discharge Date: Aug 14, 2016 Discharge Disposition: Home Principal Diagnosis: 1. Moderate- Severe Esophagitis Secondary Diagnoses/Problems: 1.Hypertension 2.Anxiety Procedures: CXR Pain mx Consultations: GI Pending Studies/Follow-Up: Instructions / Follow-Up MEDICATION CHANGES: 1. Sucralfate 1 gram QID to be taken QUIT SMOKING FOLLOW UP 1. With PCP Dr Velazquez in 7 days. Please do call for post hospital follow up appt 2. With GI in 1-2 weeks. They will call you for appt date.time Keep the scheduled appt for EGD on 09/16/16 Medication Reconciliation Continued Medications: Citalopram Hydrobromide (Citalopram Hydrobromide) 40 Mg Tab 40 MG PO HS Lisinopril (Zestril) 20 Mg Tab 20 MG PO HS, TAB Multivitamin (Multivitamin) Tab 1 TABLET PO DAILY, TAB Nitroglycerin (Nitrostat) 0.4 Mg/1 Tab Subl 0.4 MG SL Q6H PRN for Heartburn, #1 BTL Oxycodone Hcl (Oxycodone Hcl) 10 Mg Tab 10 TAB PO QID PRN for Pain Pantoprazole Sodium (Protonix) 40 Mg Tab 40 MG PO BID Ranitidine (Zantac) 150 Mg Tab 150 MG PO BID, TAB Sucralfate (Carafate) 1 Gm/10 Ml Ivette 10 ML PO QID for 10 Days, #400 ML (This prescription has been renewed) Admission Information HPI (per Admitting provider): The patient is a 46 year old male who presents to the Emergency Room with complaints of chest tightness today. Patient is a known case of severe esophagitis on protonix, ranitidine, sucralfate. Has had multiple ER visits /admissions for chest pain/Esophagitis. EGD X 2- 03/07, 04/06- Moderate to severe esophagitis (Erosive /Exudative) with pathology- heavily inflamed mucosa. Has also had esophageal dilations in past. Follows up with GI outpatient and scheduled for visit next week. . Recent ED visit 2 days ago when he was discharged with recommendation of restarting sucralfate. Troponin, EKG, CT scan to rule out dissection were all normal and thus was discharged with recommendations of follow up with GI in 2-3 days Per patient, he has always had chronic symptoms of difficulty swallowing, issues with food getting stuck, heart burn, chest tightness/pain and has learned to manage by taking care of his diet. Continues to smoke and has been cutting down. Two days ago came with chest pain with radiation to back, nausea. Today after he had sausage it got stuck in chest and after 2 hours of drinking liquids was able to get it down. Following this event, he had chest tightness, squeezing pain , similar to what he has had in past. Associated symptoms - nausea. No vomiting, epigastric pain, heart burn, reflux symptoms associated. No SOB, Diaphoresis, palpitations, cough, fever, chills. In ED, currently he is chest pain free and feeling better. Received IV Morphine 8 mg, GI cocktail and zofran in ED. CXR- no acute abnormalities, Labs- no acute abnormalities, EKG- no acute ST changes. ER physician did try to contact Dr Sue. Will admit him for uncontrolled esophagitis symptoms with re visit to ED in 2 days. . Physical Exam (per Admitting): General Appearance: no apparent distress Head: normocephalic, atraumatic Eyes: PERRL ENT: hearing grossly normal Neck: supple, no JVD Respiratory/Chest: lungs clear, normal breath sounds, no respiratory distress, no accessory muscle use Cardiovascular: regular rate, rhythm, no edema, no JVD Abdomen/GI: normal bowel sounds, non tender, soft Extremities/Musculoskelatal: no calf tenderness, no pedal edema Neurologic/Psych: no motor/sensory deficits, alert, oriented x 3 Hospital Course CHEST PAIN, LIKELY SECONDARY TO SEVERE ESOPHAGITIS - Resolved Less likely to be cardiac. Patient is a known case of severe esophagitis on protonix, ranitidine, sucralfate. Has had multiple ER visits /admissions for chest pain/Esophagitis. EGD X 2- 03/07, 04/06- Moderate to severe esophagitis (Erosive / Exudative) with pathology- heavily inflamed mucosa. Has also had esophageal dilations in past. Follows up with GI outpatient. Recent ED visit 2 days ago when he was discharged with recommendation of restarting sucralfate. Troponin x 2 negative, EKG showed no acute changes and CT scan - negative for dissection, acute findings -Clinically better, tolerating PO well -Risk factors: Smoking- Cessation education given -Continue with Protonix 40 mg BID, Sucralfate 1 gram QID , Ranitidine 150 mg BID , GI Cocktail PRN -EKG- no acute changes, Troponin x 3 - Negative -GI consult given symptoms refractory to Rx. PLAN: Per d/w GI- continue with Protonix PO BID, Ranitidine, Sucralfate. Will arrange for F/up appt in 1-2 weeks and to keep scheduled EGD on 09/16/16. HYPERTENSION - stable Likely secondary to missing medications -Continue with lisinopril daily ANXIETY -Stable DVT PROPHYLAXIS -Low risk. Encourage ambulation SCDS FULL CODE per patient DISPOSITION Observation status Okay to discharge today Cleared by GI- Follow up in 2-3 weeks Total time spent on discharge = 20 MINUTES This includes examination of the patient, discharge planning, medication reconciliation, and communication with other providers. Discharge Instructions Activity Recommendations Activity Limitations: resume your previous activity . Instructions / Follow-Up Instructions / Follow-Up MEDICATION CHANGES: 1. Sucralfate 1 gram QID to be taken QUIT SMOKING FOLLOW UP 1. With PCP Dr Velazquez in 7 days. Please do call for post hospital follow up appt 2. With GI in 1-2 weeks. They will call you for appt date.time Keep the scheduled appt for EGD on 09/16/16 Current Hospital Diet Patient's current hospital diet: Low Sodium Diet (2gm Na) Discharge Diet Recommended Diet: Regular Diet ( TOLERATED PRIOR TO ADMISSION) Pending Studies Studies pending at discharge: no Medical Emergencies . Who to Call and When: Medical Emergencies: If at any time you feel your situation is an emergency, please call 911 immediately. . Non-Emergent Contact Non-Emergency issues call your: Primary Care Provider . . "Provider Documentation" section prepared by Ariana Castaneda. VTE Core Measure Inpt VTE Proph given/why not?: Katia Caban, SCD's
[2016-09-11] MEDS ORDERED: SUCR5SUS PO (13:51)
== END 2016-08-14 14:10 | disposition home or self-care (01) ==
LOC: ENRESERVDT → ENRESERVTM → C.EDB 14:51 → C.MED 17:46 → EDBEDREQ 17:53
PROVIDERS: ADMIT Internal Medicine; ATTEND Internal Medicine
DX: K21.0 Gastro-esophageal reflux disease with esophagitis (principal); I10 Essential (primary) hypertension; F17.200 Nicotine dependence, unspecified, uncomplicated; Z90.49 Acquired absence of other specified parts of digestive tract; Z83.3 Family history of diabetes mellitus; Z82.49 Family history of ischemic heart disease and other diseases of the circulatory system

== ENCOUNTER → 2016-09-16 | Day surgery (SDC) | payer OTHER ==
[2016-09-11 13:51] VITALS: BMI 26.0
[~2016-09-16] VITALS: Ht 172.7 cm; Wt 77.3 kg
[~2016-09-16] MED LIST changes: +CITA40TA4 PO; -CRFL PO; +LABETALOL HCL IV 5 MG/ML 20ML IV ONE; +LIDOCAINE HCL 2% 2 ML VIAL (20MG/ML) ONE; +LISI-792 PO; +MULT-506 PO; -NTRSLP4 SL; +PANT40TA PO; +PROPOFOL IV EMULSION 10 MG/ML 20 ML VIAL IV ONE; +SUCR5SUS PO; +ZNTT/150 PO
[2016-09-16 08:25] VITALS: Ht 172.7 cm; Wt 77.3 kg
[2016-09-16 08:27] VITALS: TEMP 37.1
--- NOTE | 2016-09-16 08:50 | Endo History and Physical ---
History & Physical Date of Service: Sep 16, 2016. Chief Complaint: RELUX ESOPHAGITIS Referring Physician: DR. ISAAC CALDERON History of Present Illness chest pain, reflux despite PPI Past Surgical History Hx Cardiac Surgery: No Hx Internal Defibrillator: No Hx Pacemaker: No Hx Abdominal Surgery: Yes (UMBILICAL HERNIA REPAIR, MORGAN) Hx of Implantable Prosthesis: No Hx Post-Op Nausea and Vomiting: No Hx Cancer Surgery: No Hx Thoracic Surgery: No Hx Orthopedic: No Hx Urinary Tract Surgery: No Family History IBD Social History Smoking Status: Current Every Day Smoker Hx Substance Use: No Hx Alcohol Use: No Allergies Coded Allergies: Clindamycin (Verified Allergy, Severe, swelling; wheezing, 09/11/16) Penicillins (Verified Allergy, Severe, ANAPHYLAXIS, 09/11/16) Current Medications Reported Home Medications Medications Dose Route/Sig Max Daily Dose Days Date Category Carafate (Sucralfate) 1 Gm/10 Ml Susp 1 Gm PO QID 09/11/16 Reported Oxycodone Hcl 10 Mg Tab 10 Tab PO QID PRN 01/19/16 Reported Zantac (Ranitidine HCl) 150 Mg Tab 150 Mg PO BID 06/22/13 Reported Protonix (Pantoprazole Sodium) 40 Mg Tab 40 Mg PO BID 06/22/13 Reported Multivitamin (Multivitamins) Tab 1 Tablet PO HS 05/29/13 Reported Zestril (Lisinopril) 20 Mg Tab 20 Mg PO HS 10/24/12 Reported Citalopram Hydrobromide 40 Mg Tab 40 Mg PO HS 10/24/12 Reported Vital Signs Weight (Kilograms): 77.27 Height (Feet): 5 Height (Inches): 8 Date Time Temp Pulse Resp B/P Pulse Ox O2 Delivery O2 Flow Rate FiO2 09/16/16 08:36 175/109 09/16/16 08:27 37.1 63 16 185/121 97 Room Air Physical Exam General Appearance: WD/WN, no apparent distress Assessment and Plan EGD today
--- NOTE | 2016-09-16 09:51 | GI REPORT ---
Procedure Date: 09/16/2016 9:12 AM Procedure: Upper GI endoscopy Indications: Epigastric abdominal pain, Heartburn, Failure to respond to medical treatment Medicines: Propofol per Anesthesia Complications: No immediate complications. Estimated blood loss: Minimal. Estimated Blood Loss: Estimated blood loss was minimal. Procedure: Pre-Anesthesia Assessment: - Prior to the procedure, a History and Physical was performed, and patient medications, allergies and sensitivities were reviewed. The patient's tolerance of previous anesthesia was reviewed. - The risks and benefits of the procedure and the sedation options and risks were discussed with the patient. All questions were answered and informed consent was obtained. - Patient identification and proposed procedure were verified prior to the procedure by the physician and the nurse. The procedure was verified in the pre-procedure area in the procedure room. - Mental Status Examination: alert and oriented. Airway Examination: normal oropharyngeal airway and neck mobility. Respiratory Examination: clear to auscultation. CV Examination: normal. Abdominal Examination: bowel sounds present, abdomen soft and non-tender, no masses or organomegaly noted. - ASA Grade Assessment: III - A patient with severe systemic disease. After obtaining informed consent, the endoscope was passed under direct vision. Throughout the procedure, the patient's blood pressure, pulse, and oxygen saturations were monitored continuously. The scope was introduced through the mouth, and advanced to the second part of duodenum. The upper GI endoscopy was accomplished without difficulty. The patient tolerated the procedure well. Findings: Savary-Mccormack Grade III (circumferential lesion, erosive or exudative) esophagitis with no bleeding was found in the lower third of the esophagus. Biopsies were taken with a cold forceps for histology. Verification of patient identification for the specimen was done by the physician and nurse using the patient's name and date. Estimated blood loss was minimal. A medium-sized hiatus hernia was present. The examined duodenum was normal. Impression: - Savary-Mccormack Grade III reflux esophagitis. Rule out Trotter's esophagus. Biopsied. - Medium-sized hiatus hernia. - Normal examined duodenum. Recommendation: - Await pathology results. - Follow an antireflux regimen. - High dose PPI twice a day. - Zantac 300 mg twice a day. - Repeat the upper endoscopy in 8 weeks to check healing. - Return to primary care physician as previously scheduled. - Discharge patient to home. Daniela Sue D.O. Daniela Sue DO 09/16/2016 9:50:31 AM This report has been signed electronically. Note Initiated On: 09/16/2016 9:12 AM I attest to the content of the Intraoperative Record and orders documented therein, exceptions below
--- NOTE | 2016-09-16 09:59 | Discharge Instructions ---
Endoscopy Patient Instructions Date / Procedure(s) Performed Sep 16, 2016. EGD Allergy Information Coded Allergies: Clindamycin (Verified Allergy, Severe, swelling; wheezing, 09/11/16) Penicillins (Verified Allergy, Severe, ANAPHYLAXIS, 09/11/16) Discharge Date / Findings Sep 16, 2016. esophagitis; hiatal hernia Medication Instructions Stopped Medication(s): PAIN MEDIACTIONS Restart Stopped Medication(s): OK to resume home medications as above Provider Instructions Activity Restrictions - No exercising or heavy lifting for 24 hours. - Do not drink alcohol the day of the procedure. - Do not drive a car or operate machinery until the day after the procedure. - Do not make any important decisions or sign important papers in 24 hours after the procedure. Following Day: - Return to full activity which may include returning to work/school. Diet Start your diet with liquids and light foods (jello, soup, juice, toast). Then eat your usual diet if not nauseated. Treatment For Common After Affects For mild abdominal pain, bloating, or excessive gas: - Rest - Eat lightly - Lie on right side Follow-Up Information Follow-up with DR. ISAAC CALDERON as scheduled Anesthesia Information What You Should Know You have had a procedure that required some medicine to reduce anxiety and discomfort. This treatment is called moderate sedation. After receiving the treatment, you may be sleepy, but you will be able to breathe on your own. The effects of the treatment may last for several hours. Follow these instructions along with Activity/Diet recommendations noted above: * Do NOT do anything where dizziness or clumsiness would be dangerous. * Rest quietly at home today, then you can be up and about tomorrow. * Have a responsible person stay with you the rest of today. * You may have had an I.V. today. If so, you may take the dressing off later today. Recommendations Call your doctor if: * Trouble breathing * Continuous vomiting for more than 24 hours * Temperature above 101 degrees * Severe abdominal pain or bloating * Pain not relieved by pain medicine ordered * There is increased drainage or redness from any incision * A large amount of rectal bleeding greater than 2-3 tablespoons. (If you had a polyp/s removed or have hemorrhoids, a small amount of blood - from the rectum is to be expected.) * You have any unanswered questions or concerns. IN THE EVENT OF A SERIOUS EMERGENCY, GO TO THE NEAREST EMERGENCY ROOM Your discharge instructions were prepared by provider Daniela Sue. Patient Instructions Signature Page Neptali Bernal Patient (or Guardian) Signature/Date: I have read and understand the instructions given to me by my caregivers. Caregiver/RN/Doctor Signature/Date: The above-named patient and/or guardian has received patient instructions on this date. + Original Patient Signature Page (only) stays with chart. Please make copy for patient.
[2016-09-16 10:15] VITALS: BP 138/89; PULSE 58; O2SAT 98
--- NOTE | 2016-09-16 10:28 | Anesthesiology Progress Note ---
Anesthesia Post Op Note Date & Time Sep 16, 2016 at 10:28 Vital Signs Pain Intensity: 5 Vital Signs Past 12 Hours Date Time Temp Pulse Resp B/P Pulse Ox O2 Delivery O2 Flow Rate FiO2 09/16/16 10:15 58 18 138/89 98 Room Air 09/16/16 10:00 56 18 130/92 99 Room Air 09/16/16 09:45 72 18 125/77 99 Room Air 09/16/16 09:28 154/91 09/16/16 09:14 151/108 09/16/16 08:59 68 18 167/108 100 Room Air 09/16/16 08:36 175/109 09/16/16 08:27 37.1 63 16 185/121 97 Room Air Notes Mental Status: alert / awake / arousable, participated in evaluation Pt Amnestic to Procedure: Yes Nausea / Vomiting: adequately controlled Pain: adequately controlled Airway Patency, RR, SpO2: stable & adequate BP & HR: stable & adequate Hydration State: stable & adequate Anesthetic Complications: no major complications apparent
== END | disposition home or self-care (01) ==
LOC: C.GI 08:06
PROVIDERS: ATTEND Internal Medicine
DX: R10.13 Epigastric pain (principal); K44.9 Diaphragmatic hernia without obstruction or gangrene; K21.0 Gastro-esophageal reflux disease with esophagitis; K31.89 Other diseases of stomach and duodenum; I10 Essential (primary) hypertension; Z88.0 Allergy status to penicillin; Z88.1 Allergy status to other antibiotic agents; Z98.890 Other specified postprocedural states; Z90.49 Acquired absence of other specified parts of digestive tract

== ENCOUNTER 2016-11-19 21:13 | Emergency (ER) | payer OTHER ==
[~2016-11-19] VITALS: Ht 175.3 cm; Wt 82.0 kg
[~2016-11-19 21:13] MED LIST changes: -LABETALOL HCL IV 5 MG/ML 20ML IV ONE; -LIDOCAINE HCL 2% 2 ML VIAL (20MG/ML) ONE; -PROPOFOL IV EMULSION 10 MG/ML 20 ML VIAL IV ONE
[2016-11-19 21:16] VITALS: TEMP 36.6; Ht 175.3 cm; Wt 82.0 kg
[2016-11-19] MEDS ORDERED: LORAZEPAM 2 MG/ML 1 ML VIAL IV STA (21:26)
[2016-11-19] MEDS ORDERED: SODIUM CHLORIDE 0.9% 1000ML 1,000 ML IV STA ×2 (21:26)
[2016-11-19] MEDS ORDERED: LIDOCAINE HCL 2% VISC SOLN 20 ML UDC PO STA (21:28)
[2016-11-19] MEDS ORDERED: ALUMINUM/MAGNESIUM SUSP 30 ML UDC PO STA (21:28)
[2016-11-19 21:37] LABS: BASO % 0.5 %; BASO ABS # 0.05 K/uL (0-0.2); COMPLETE YES; EOS % 5.8 %; IG% 0.2 %; LYMPH % 32.3 %; LYMPH ABS # 3.26 K/uL (1.2-3.4); MEAN CELL VOLUME 89.7 fL (80-100); MEAN CORPUSCULAR HEMOGLOBIN 30.9 pg (25-34); MEAN CORPUSCULAR HGB CONC 34.5 g/dl (32-36); MEAN PLATELET VOLUME 8.7 fL (7.4-10.4); MONO % 4.9 %; NEUT % 56.3 %; PLATELET COUNT 358 K/uL (130-400); RED BLOOD COUNT 5.24 M/uL (4.7-6.1)
[2016-11-19 21:42] VITALS: O2SAT 100
--- NOTE | 2016-11-19 21:55 | DIAGNOSTIC IMAGING REPORT ---
CHEST ONE VIEW PORTABLE CLINICAL HISTORY: Atypical chest pain COMPARISON STUDY: 08/11/2016 FINDINGS: The cardiac and mediastinal contours are normal. There is no evidence of focal pulmonary consolidation. There is no evidence of failure. No pleural effusions are visualized.[ There is an S-shaped thoracic scoliosis. IMPRESSION: No active disease in the chest. Electronically signed by: Nirav Kemp M.D. 11/19/2016 9:53 PM Dictated Date/Time: 11/19/2016 9:53 PM
[2016-11-19 21:57] LABS: ALT/SGPT 32 U/L (12-78); BLOOD UREA NITROGEN 13 mg/dl (7-18); BUN/CREATININE RATIO 11.1 (10-20); CARBON DIOXIDE 30 mmol/L (21-32); CHLORIDE 101 mmol/L (98-107); GLUCOSE 118 mg/dl (70-99); SODIUM 138 mmol/L (136-145)
[2016-11-19 22:08] LABS: ALKALINE PHOSPHATASE 68 U/L (45-117); AST/SGOT 15 U/L (15-37)
[2016-11-19] MEDS ORDERED: OPTIRAY 320 IV PRN (22:30)
--- NOTE | 2016-11-19 22:44 | DIAGNOSTIC IMAGING REPORT ---
CT ANGIOGRAM OF THE CHEST CLINICAL HISTORY: Midsternal chest pain, shortness of breath, elevated d-dimer. COMPARISON STUDY: 02/08/2016 TECHNIQUE: Following the IV administration of 97 mL of Optiray-320, CT angiogram of the thorax was performed from the thoracic inlet to the lung bases utilizing the pulmonary embolus protocol. Images are reviewed in the axial, sagittal, and coronal planes. IV contrast was administered without complication. MIP imaging was performed. CT DOSE: 314.35 mGy.cm FINDINGS: No pathologically enlarged axillary mediastinal or hilar lymph nodes were visualized. There was no evidence of thoracic aortic dilatation. There were no pulmonary artery filling defects to indicate acute pulmonary embolism. No pleural effusions are visualized. There was no evidence of focal pulmonary consolidation. There is borderline esophageal wall thickening IMPRESSION: 1. No CT evidence of acute pulmonary embolism 2. No evidence of focal pulmonary consolidation 3. Borderline esophageal wall thickening Electronically signed by: Nirav Kemp M.D. 11/19/2016 10:43 PM Dictated Date/Time: 11/19/2016 10:39 PM
[2016-11-19] MEDS ORDERED: ATIVAN 1MG HOMEPACK PO ONE (22:45)
--- NOTE | 2016-11-20 00:07 | EMERGENCY ROOM VISIT NOTE ---
History First contact with patient: 21:20 Chief Complaint: CHEST PAIN Stated Complaint: CHEST PAINS Nursing Triage Summary: pt reports he got sudded onset of left sided chest pain approx 3 hours ago while eating. pt states pain is "heavy and sharp" radiating to back. pt states "I know I have problems with my esophagus but this felt different." pt denies sob, states "It just feels heavy in my chest." denies n/v. pt alert and oriented x4. pt breathing WNL. History of Present Illness The patient is a 46 year old male who presents to the Emergency Room with complaints of chest pain and dyspnea and feeling shaky for the past few hours who stopped his Celexa on his own 2 days ago. He describes the pain as aching, ranging in severity 6 out of 10 throughout the chest. Nothing Yousif better or worse. Patient has a history of Trotter's esophagitis and follows with Dr. Sue. This feels different. Patient denies fever, chills, cough, congestion , abdominal pain, leg pain or swelling, back pain, rating pain, jaw pain, neck pain. Patient does smoke. No prior heart disease. Review of Systems See HPI for pertinent positives & negatives. A total of 10 systems reviewed and were otherwise negative. Past Medical/Surgical History Medical Problems: (1) bleeding problems (2) Eosinophilic esophagitis (3) Esophagitis (4) Gallbladder problem (5) Hypertension (6) Renal infarct (7) Stomach problems (8) ulcers Surgical Problems: (1) Hx of cholecystectomy Family History Diabetes mellitus FH: cancer FH: heart disease FH: lung disease Hypertension Social History Smoking Status: Never Smoker Alcohol Use: occasionally Drug Use: none Marital Status: Housing Status: lives with family Occupation Status: employed Current/Historical Medications Scheduled Citalopram Hydrobromide (Citalopram Hydrobromide), 40 MG PO HS Lisinopril (Zestril), 20 MG PO HS Multivitamin (Multivitamin), 1 TABLET PO HS Pantoprazole Sodium (Protonix), 40 MG PO BID Ranitidine (Zantac), 150 MG PO BID Scheduled PRN Oxycodone Hcl (Oxycodone Hcl), 10 TAB PO QID PRN for Pain Allergies Coded Allergies: Clindamycin (Verified Allergy, Severe, swelling; wheezing, 11/19/16) Penicillins (Verified Allergy, Severe, ANAPHYLAXIS, 11/19/16) Physical Exam Vital Signs Date Time Temp Pulse Resp B/P Pulse Ox O2 Delivery O2 Flow Rate FiO2 11/19/16 23:31 66 18 139/81 100 Room Air 11/19/16 21:42 Room Air 11/19/16 21:42 100 Room Air 11/19/16 21:42 Room Air 11/19/16 21:39 90 11/19/16 21:16 Room Air 11/19/16 21:16 36.6 110 20 177/100 98 Room Air Physical Exam VITALS: Vitals are noted on the nurse's note and reviewed by myself. Vital signs hypertensive GENERAL: White male anxious-appearing, in no acute distress, nondiaphoretic, well-developed well-nourished. SKIN: The skin was without rashes, erythema, edema, or bruising. There is no tenting of the skin. Capillary reflex less than 2 seconds. HEAD: Normocephalic atraumatic. EARS: External auditory canals clear, tympanic membranes pearly maddox without erythema or effusion bilaterally. EYES: Pupils equal round and reactive to light and accommodation. Conjunctivae without injection, sclerae without icterus. Extraocular movements intact. NOSE: Patent, turbinates without inflammation or discharge. MOUTH: Mucous membranes moist. Pharynx without erythema or exudate. Uvula midline. Airway patent. Tongue does not deviate. NECK: Supple without nuchal rigidity. No lymphadenopathy. No thyromegaly. Cervical spine is nontender. No JVD. HEART: Regular rate and rhythm without murmurs gallops or rubs. Chest nontender to palpation LUNGS: Clear to auscultation bilaterally without wheezes, rales or rhonchi. No dullness to percussion. No retractions or accessory muscle use. ABDOMEN: Positive bowel sounds x 4. Normal tympanic percussion. Soft, nontender, without masses or organomegaly. Pedraza sign negative. No guarding or rebound tenderness. MUSCULOSKELETAL: No muscle atrophy, erythema, or edema noted. NEURO: Patient was alert and oriented to person place and time. Normal sensation to light and sharp touch. No focal neurological deficits. Medical Decision & Procedures Laboratory Results 11/19/16 21:27 Red Blood Count 5.24, Mean Corpuscular Volume 89.7, Mean Corpuscular Hemoglobin 30.9, Mean Corpuscular Hemoglobin Concent 34.5, Mean Platelet Volume 8.7, Neutrophils (%) (Auto) 56.3, Lymphocytes (%) (Auto) 32.3, Monocytes (%) (Auto) 4.9, Eosinophils (%) (Auto) 5.8, Basophils (%) (Auto) 0.5, Neutrophils # (Auto) 5.69, Lymphocytes # (Auto) 3.26, Monocytes # (Auto) 0.49, Eosinophils # (Auto) 0.59, Basophils # (Auto) 0.05 11/19/16 21:27 Test 11/19/16 21:27 11/19/16 21:31 11/19/16 23:39 White Blood Count 10.10 K/uL (4.8-10.8) Red Blood Count 5.24 M/uL (4.7-6.1) Hemoglobin 16.2 g/dL (14.0-18.0) Hematocrit 47.0 % (42-52) Mean Corpuscular Volume 89.7 fL (80-100) Mean Corpuscular Hemoglobin 30.9 pg (25-34) Mean Corpuscular Hemoglobin Concent 34.5 g/dl (32-36) Platelet Count 358 K/uL (130-400) Mean Platelet Volume 8.7 fL (7.4-10.4) Neutrophils (%) (Auto) 56.3 % Lymphocytes (%) (Auto) 32.3 % Monocytes (%) (Auto) 4.9 % Eosinophils (%) (Auto) 5.8 % Basophils (%) (Auto) 0.5 % Neutrophils # (Auto) 5.69 K/uL (1.4-6.5) Lymphocytes # (Auto) 3.26 K/uL (1.2-3.4) Monocytes # (Auto) 0.49 K/uL (0.11-0.59) Eosinophils # (Auto) 0.59 K/uL (0-0.5) Basophils # (Auto) 0.05 K/uL (0-0.2) RDW Standard Deviation 40.9 fL (36.4-46.3) RDW Coefficient of Variation 12.6 % (11.5-14.5) Immature Granulocyte % (Auto) 0.2 % Immature Granulocyte # (Auto) 0.02 K/uL (0.00-0.02) Anion Gap 7.0 mmol/L (3-11) Est Creatinine Clear Calc Drug Dose 76.1 ml/min Estimated GFR () 83.0 Estimated GFR (Non- 71.6 BUN/Creatinine Ratio 11.1 (10-20) Calcium Level 9.0 mg/dl (8.5-10.1) Magnesium Level 2.0 mg/dl (1.8-2.4) Total Bilirubin 0.5 mg/dl (0.2-1) Direct Bilirubin 0.1 mg/dl (0-0.2) Aspartate Amino Transf (AST/SGOT) 15 U/L (15-37) Alanine Aminotransferase (ALT/SGPT) 32 U/L (12-78) Alkaline Phosphatase 68 U/L (45-117) Troponin I < 0.015 ng/ml (0-0.045) Total Protein 8.0 gm/dl (6.4-8.2) Albumin 4.2 gm/dl (3.4-5.0) Lipase 125 U/L (73-393) Thyroid Stimulating Hormone (TSH) 1.040 uIu/ml (0.300-4.500) Bedside D-Dimer > 450 ng/mlFEU (0-450) Bedside Troponin I 0.000 ng/ml (0-0.045) Medications Administered Medications (Trade) Dose Ordered Sig/Mandy Route Start Time Stop Time Status Last Admin Dose Admin Sodium Chloride (Nss 1000ml) 1,000 ml @ 999 mls/hr Q1H1M STAT IV 11/19/16 21:26 11/19/16 22:26 DC 11/19/16 21:42 999 MLS/HR Lidocaine HCl (Viscous Lidocaine 2% Soln) 10 ml NOW STAT PO 11/19/16 21:28 11/19/16 21:29 DC 11/19/16 21:39 10 ML Al Hydroxide/Mg Hydroxide (Maalox Susp) 30 ml NOW STAT PO 11/19/16 21:28 11/19/16 21:29 DC 11/19/16 21:39 30 ML ED Course Prior records/ancillary studies reviewed. Triage Nursing notes reviewed. The patient's history was concerning for chest pain. Differential diagnosis: Etiologies such as side effects of stopping Celexa, cardiac ischemia, aortic dissection, pulmonary embolism, pneumonia, pneumothorax, musculoskeletal, infections, pericarditis, myocarditis, esophageal rupture, gastrointestinal, as well as others were entertained. Physical examination: As above. ER treatment provided: GI cocktail, Ativan On reassessment the patient felt better. Diagnostic interpretation by me: The electrocardiogram was negative for pathologic change. Normal sinus, normal intervals, no acute ST-T wave changes. Rate of 101. Impression sinus tachycardia interpreted by myself The labs revealed negative troponin 2 days 2 hours apart. Elevated d-dimer and patient was sent for CTA Imaging studies: Chest x-ray as above CHEST ONE VIEW PORTABLE CLINICAL HISTORY: Atypical chest pain COMPARISON STUDY: 08/11/2016 FINDINGS: The cardiac and mediastinal contours are normal. There is no evidence of focal pulmonary consolidation. There is no evidence of failure. No pleural effusions are visualized.[ There is an S-shaped thoracic scoliosis. IMPRESSION: No active disease in the chest. TECHNIQUE: Following the IV administration of 97 mL of Optiray-320, CT angiogram of the thorax was performed from the thoracic inlet to the lung bases utilizing the pulmonary embolus protocol. Images are reviewed in the axial, sagittal, and coronal planes. IV contrast was administered without complication. MIP imaging was performed. CT DOSE: 314.35 mGy.cm FINDINGS: No pathologically enlarged axillary mediastinal or hilar lymph nodes were visualized. There was no evidence of thoracic aortic dilatation. There were no pulmonary artery filling defects to indicate acute pulmonary embolism. No pleural effusions are visualized. There was no evidence of focal pulmonary consolidation. There is borderline esophageal wall thickening IMPRESSION: 1. No CT evidence of acute pulmonary embolism 2. No evidence of focal pulmonary consolidation 3. Borderline esophageal wall thickening Electronically signed by: Nirav Kepm M.D. 11/19/2016 10:43 PM Dictated Date/Time: 11/19/2016 10:39 PM Electronically signed by: Nirav Kemp M.D. Damage and history seem consistent with chest pain most likely from anxiety. Patient stopped his Celexa on his own. He was advised to contact his family care doctor for further evaluation and workup for his symptoms. He was advised to take Ativan as needed for severe anxiety but no alcohol or driving his medication. He was advised to follow-up in 1-2 days with family care here in the ER sooner for chest pain, difficulty breathing, worsening signs or symptoms or as needed. Patient had unremarkable workup as above. Normal EKG. Negative troponin 2.By the evaluation outlined above emergent etiologies such as cardiac ischemia, aortic dissection, pulmonary embolism, pneumonia, pneumothorax , infections, pericarditis, myocarditis, gastrointestinal, as well as others were deemed relatively unlikely. The pt informed about the findings as listed above. All questions were answered and pleased with the treatment. Return instructions were outlined and the patient was discharged in stable condition. Outpatient prescription management: Ativan Referral: The patient was referred back to primary care physician for follow-up in 2 to 3 days for a recheck of the current condition. Case reviewed with my attending Medical Decision As above Impression Primary Impression: Substernal precordial chest pain Additional Impression: Anxiety Departure Information Dispostion Home / Self-Care Condition GOOD Referrals Donald Velazquez D.O. (PCP) Patient Instructions My [facility] Additional Instructions Ativan 1 m tablet every 8 hours as needed for anxiety. No alcohol or driving on this medication. Acetaminophen(Tylenol) may be used for fever or pain. Use 1000mg every six hours as needed. Avoid using more than 3000mg in a 24 hour period. Rest and drink plenty of fluids as tolerated. Continue current medications. Avoid strenuous activities and anything that worsens your pain. Resume normal activities once your symptoms resolve. Return to the ER immediately for worsening or persistent chest pain, abdominal pain, vomiting, fevers, chest pains, difficulty breathing, worsening of your condition, or as needed. Follow up with your primary physician and GI in 2-3 days for a recheck of your current condition. Problem Qualifiers
[2016-11-20 00:13] VITALS: BP 126/62; PULSE 65; O2SAT 100
== END 2016-11-20 00:15 | disposition home or self-care (01) ==
LOC: C.EDB 21:14 → C.EDA 11-20 00:15
DX: R07.2 Precordial pain (principal); F41.9 Anxiety disorder, unspecified; K22.70 Barrett's esophagus without dysplasia; K20.0 Eosinophilic esophagitis; I10 Essential (primary) hypertension; Z83.3 Family history of diabetes mellitus; Z80.9 Family history of malignant neoplasm, unspecified; Z82.49 Family history of ischemic heart disease and other diseases of the circulatory system; Z83.6 Family history of other diseases of the respiratory system; Z79.899 Other long term (current) drug therapy

== ENCOUNTER 2019-10-08 22:26 | Observation (INO) ==
--- OUTSIDE RECORDS SUMMARY | 2019-10-08 22:29 | External Medical Summary | Continuity of Care Document ---
:1970 Author Name Marisel Rodriguez Address Unavailable Unavailable , Care Team Providers Name Role Phone Dm MARQUEZ [email or web address] [email or web address] PA-C Unavailable [email or web address] Case Mario ALDANA Unavailable [email or web address] Dennis Rodriguez Unavailable [email or web address] Problems History of Cholecystectomy Laparoscopic Status: Resolved Acute Esophageal Ulcer (530.20) Early satiety (780.94) (R68.81) Abdominal pain, epigastric (789.06) (R10.13) Diarrhea (787.91) (R19.7) Joint pain, knee (719.46) (M25.569) Hypertension (401.9) (I10) Chronic reflux esophagitis (530.11) (K21.0) Skin neoplasm (239.2) (D49.2) Esophageal reflux (530.81) (K21.9) Chest pain (786.50) (R07.9) Fatigue (780.79) (R53.83) Palpitations (785.1) (R00.2) Eosinophilic esophagitis (530.13) (K20.0) Thyroid disorder (246.9) (E07.9) Dyslipidemia (272.4) (E78.5) Depression with anxiety (300.4) (F41.8) Dysphagia (787.20) (R13.10) Allergies and Adverse Reactions Clarithromycin TABS (Allergy) Penicillins (Allergy) Reaction: Anaphyla xis Medications Citalopram Hydrobromide 40 MG Oral Tablet; Take 1 tabl et daily JOSE DE JESUS Jarrell Start: 03-Jun-2010 Quantity: 30 Refills: 5 Multi-Vitamin TABS Refills: 0 hydrOXYzine HCl - 25 MG Oral Tablet; TAKE 25 MG 3 time s daily Jennifer Collins Start: 15-Jul-2011 Quantity: 90 Refills: 2 Lisinopril 20 MG Oral Tablet; TAKE ONE TABLET BY MOUTH ONE TIME DAILY JOSE DE JESUS Jarrell Start: 29-Jul-2012 Quantity: 30 Refills: 5 Dexilant 60 MG Oral Capsule Delayed Rele ase; TAKE 1 CAPSULE Daily 1/2 hour prior to breakfast DO Toni Prater Start: 19-Nov-2012 Quantity: 30 Refills: 5 Carafate 1 GM/10ML Oral Suspension; TAKE 10 ML 30 MINUTES PRIOR TO MEALS AND AT BEDTIME. DO Toni Prater Start: 26-Nov-2012 Quantity: 400 Refills: 1 Cholestyramine 4 GM Oral Packet; MIX THE CONTENTS OF 1/2 to 1 POWDER PACKET WITH 6 OZ OF NONCARBONATED BEVERAGE AND SWALLOW ONCE DAILY. ALMA Chaidez Start: 13-Jun-2013 Quantity: 30 Refills: 2 Procedures History of Diagnostic Esophagogastroduodenoscopy Status: Completed History of Umbilical Hernia Herniorrhaphy Status: Completed History of Cholecystectomy Laparoscopic Status: Completed Immunizations Tdap On: 27-Feb-2011 15:55 Lot #: [id number], SANOFI PASTEUR Family History Father Family history of Prostate Cancer (V16.42) Status: Active Unknown Family Member Family history of Hypotension Status: Active Comments: Family History Family history of Diabetes Mellitus (V18.0) Status: Active Comments: Family History Mother Family history of Anxiety Disorder NOS Status: Active Social History - Smoking Status Never smoked tobacco Plan of Treatment Planned Observations Planned Goals not documented Results No Known Results Results not documented
--- OUTSIDE RECORDS SUMMARY | 2019-10-08 22:29 | External Medical Summary | Continuity of Care Document ---
:1970 Author Name Marisel Rodriguez Address Unavailable Unavailable , Care Team Providers Name Role Phone Dm MARQUEZ Unavailable [email or web address] PA-C Unavailable [email or web address] [email or web address] ALDANA LoliSantosh Unavailable [email or web address] Dennis Rodriguez Unavailable [email or web address] Problems Dysphagia (787.20) (R13.10) Depression with anxiety (300.4) (F41.8) Dyslipidemia (272.4) (E78.5) Thyroid disorder (246.9) (E07.9) Eosinophilic esophagitis (530.13) (K20.0) Palpitations (785.1) (R00.2) Fatigue (780.79) (R53.83) Chest pain (786.50) (R07.9) Esophageal reflux (530.81) (K21.9) Skin neoplasm (239.2) (D49.2) Chronic reflux esophagitis (530.11) (K21.0) Hypertension (401.9) (I10) Joint pain, knee (719.46) (M25.569) Diarrhea (787.91) (R19.7) Abdominal pain, epigastric (789.06) (R10.13) Early satiety (780.94) (R68.81) Acute Esophageal Ulcer (530.20) History of Cholecystectomy Laparoscopic Status: Resolved Allergies and Adverse Reactions Clarithromycin TABS (Allergy) Penicillins (Allergy) Reaction: Anaphyla xis Medications Multi-Vitamin TABS Refills: 0 Carafate 1 GM/10ML Oral Suspension; TAKE 10 ML 30 MINUTES PRIOR TO MEALS AND AT BEDTIME. DO Moi Toni Martin Start: 26-Nov-2012 Quantity: 400 Refills: 1 Cholestyramine 4 GM Oral Packet; MIX THE CONTENTS OF 1/2 to 1 POWDER PACKET WITH 6 OZ OF NONCARBONATED BEVERAGE AND SWALLOW ONCE DAILY. ALMA Chaidez Start: 13-Jun-2013 Quantity: 30 Refills: 2 Lisinopril 20 MG Oral Tablet; TAKE ONE TABLET BY MOUTH ONE TIME DAILY JOSE DE JESUS Jarrell Start: 29-Jul-2012 Quantity: 30 Refills: 5 Dexilant 60 MG Oral Capsule Delayed Rele ase; TAKE 1 CAPSULE Daily 1/2 hour prior to breakfast DO Toni Prater Start: 19-Nov-2012 Quantity: 30 Refills: 5 Citalopram Hydrobromide 40 MG Oral Tablet; Take 1 tabl et daily JOSE DE JESUS Jarrell Start: 03-Jun-2010 Quantity: 30 Refills: 5 hydrOXYzine HCl - 25 MG Oral Tablet; TAKE 25 MG 3 time s daily Jennifer Collins Start: 15-Jul-2011 Quantity: 90 Refills: 2 Procedures History of Diagnostic Esophagogastroduodenoscopy Status: Completed History of Umbilical Hernia Herniorrhaphy Status: Completed History of Cholecystectomy Laparoscopic Status: Completed Immunizations Tdap On: 27-Feb-2011 15:55 Lot #: [id number], [employer] PA[employer]UR Family History Father Family history of Prostate Cancer (V16.42) Status: Active Unknown Family Member Family history of Diabetes Mellitus (V18.0) Status: Active Comments: Family History Family history of Hypotension Status: Active Comments: Family History Mother Family history of Anxiety Disorder NOS Status: Active Social History - Smoking Status Never smoked tobacco Plan of Treatment Planned Observations Planned Goals not documented Results No Known Results Results not documented
[2019-10-08] MEDS ORDERED: LORazepam 1 MG TAB SL STA (22:50)
[2019-10-08] MEDS ORDERED: SODIUM CHLORIDE 0.9% 1000ML 1,000 ML IV SCH (22:51)
[2019-10-08 22:58] LABS: Basophils # (auto) 0.05 K/uL (0-0.2); Basophils % (auto) 0.4 %; Eosinophils % (auto) 2.4 %; Hematocrit (blood only) 45.4 % (42-52); Hemoglobin 15.9 g/dL (14.0-18.0); Immature Granulocytes # (auto) 0.03 K/uL (0.00-0.02); Immature Granulocytes % (auto) 0.2 %; Lymphocytes # (auto) 3.43 K/uL (1.2-3.4); Mean Corpuscular Hemoglobin 30.6 pg (25-34); Mean Corpuscular Volume 87.5 fL (80-100); Monocytes # (auto) 0.58 K/uL (0.11-0.59); Monocytes % (auto) 4.7 %; Neutrophils # (auto) 7.87 K/uL (1.4-6.5); Neutrophils % (auto) 64.3 %; Platelet Count 381 K/uL (130-400); RDW Coefficient of Variation 12.4 % (11.5-14.5); RDW Standard Deviation 39.6 fL (36.4-46.3); Red Blood Count 5.19 M/uL (4.7-6.1); White Blood Count 12.26 K/uL (4.8-10.8)
--- NOTE | 2019-10-08 22:58 | Emergency Department Note ---
History of Present Illness General Chief complaint: Chest Pain Stated complaint: CHEST PAIN Time Seen by Provider: 10/08/19 22:34 Source: patient Mode of arrival: ambulatory Limitations: no limitations History of Present Illness Maximum Pain Intensity: 8 This patient is a 49-year-old male who presents to the emergency department for evaluation of episodic chest pain and tachycardia over the past few weeks. Patient states symptoms have been worsening for the past 3 days. He reports episodes of feeling like his heart is racing, chest pain, pain in his arm and dizziness. He states that the chest pain is a constant, aching pain on his left side. He does report he has had a history of esophageal spasms, but states this pain feels different. He has been checking his blood pressure and states that it has been elevated. He states that last night after checking his blood pressure, he became dizzy and "blacked out." He reports that he is prescribed medication for his blood pressure, but was not taking it until a few days ago when he became worried. He denies any history of cardiac disease. He has had a stress test but states it was "a long time ago." He denies any family history of heart disease. He is a smoker. He reports that at this time, he is having some mild chest pain, palpitations, headache and feels very anxious. He rates his overall discomfort an 8/10. He denies alcohol or drug use. Home Medications Home Medications Medication Instructions Recorded Confirmed Type lisinopril 20 mg PO DAILY #0 tab 10/24/12 10/08/19 History pantoprazole 40 mg PO BID #0 06/22/13 10/08/19 History ranitidine HCl [Zantac] 150 mg PO BID #0 tab 06/22/13 10/08/19 History oxycodone 10 mg PO Q6H PRN #0 01/19/16 10/08/19 History Allergies Allergy/AdvReac Type Severity Reaction Status Date / Time clindamycin Allergy Severe swelling; Verified 10/08/19 23:24 wheezing Penicillins Allergy Severe ANAPHYLAXIS Verified 10/08/19 23:24 Past Med/Surg History Medical History Back pain (Acute 05/30/13) Cervical disc disease (Acute) Cervical spinal stenosis (Acute) Esophagitis (Inactive) Food impaction of esophagus (Acute) Hypertension (Chronic) Neck pain (Acute) Stomach problems (Chronic) Surgical History Hx of cholecystectomy (Chronic) Social History Preferred Language: Haitian Beliefs That Will Affect Care: None Current Living Situation: Alone Feels Safe at Home: Yes Safety Concerns: Feels Safe At This Time Smoking Status: Former smoker Hx Substance Use: No Review of Systems A total of 10 systems reviewed and were otherwise negative Physical Exam Vital Signs Vital Signs - 24 hr 10/08/19 22:28 10/08/19 22:39 10/08/19 22:45 Temperature 36.3 C L Temperature Source Oral Pulse Rate 103 H 96 H Pulse Rate from SpO2 Sensor 101 H Pulse Rhythm Respiratory Rate 19 12 Blood Pressure 171/104 H 177/127 H Blood Pressure Mean 126 152 Blood Pressure Position Sitting Pulse Oximetry 100 99 Oxygen Delivery Method Room Air Room Air Sepsis Recent Fever Within 48 Hours No Sepsis New/Unexplained Change in Mental Status No Sepsis Action Taken by Nursing No Action Required 10/08/19 22:46 10/08/19 22:53 10/08/19 23:00 Temperature Temperature Source Pulse Rate 103 H 88 Pulse Rate from SpO2 Sensor 89 Pulse Rhythm Regular Respiratory Rate 19 17 Blood Pressure 158/96 H Blood Pressure Mean 121 Blood Pressure Position Pulse Oximetry 100 100 98 Oxygen Delivery Method Room Air Room Air Room Air Sepsis Recent Fever Within 48 Hours Sepsis New/Unexplained Change in Mental Status Sepsis Action Taken by Nursing 10/09/19 00:30 10/09/19 01:01 Temperature Temperature Source Pulse Rate 91 H 94 H Pulse Rate from SpO2 Sensor 92 H 96 H Pulse Rhythm Respiratory Rate 15 16 Blood Pressure 164/102 H 163/109 H Blood Pressure Mean 123 121 Blood Pressure Position Pulse Oximetry 97 95 Oxygen Delivery Method Room Air Room Air Sepsis Recent Fever Within 48 Hours Sepsis New/Unexplained Change in Mental Status Sepsis Action Taken by Nursing VITALS: Vitals are noted on the nurse's note and reviewed by myself. GENERAL: This is a 49-year-old male, very anxious appearing, well-developed well-nourished. SKIN: The skin was warm and dry, without rashes. HEAD: Normocephalic atraumatic. EARS: External auditory canals clear, tympanic membranes pearly maddox without erythema or effusion bilaterally. EYES: Pupils equal round and reactive to light and accommodation. NOSE: Patent, turbinates without inflammation or discharge. MOUTH: Mucous membranes moist. Tonsils are not enlarged. Pharynx without erythema or exudate. NECK: Supple without nuchal rigidity. No lymphadenopathy. HEART: Tachycardic, regular rhythm without murmurs gallops or rubs. LUNGS: Clear to auscultation bilaterally without wheezes, rales or rhonchi. No retractions or accessory muscle use. ABDOMEN: Positive bowel sounds x 4. Nontender to palpation. MUSCULOSKELETAL: Normal strength throughout. NEURO: Patient was alert and oriented to person place and time. Course Consultations Consultation #1: Dr. Sorto [facility] hospitalist Administered Medications Discontinued Medications Aspirin (Aspirin) 324 mg PO NOW STA Stop: 10/09/19 00:10 Last Admin: 10/09/19 00:15 Dose: 324 mg Documented by: [id number] Sodium Chloride (Nss 1000ml) 1,000 mls @ 999 mls/hr IV .Q1H1M LYNDON Stop: 10/08/19 23:51 Last Infusion: 10/09/19 00:08 Dose: 0 mls/hr Documented by: [id number] Admin: 10/08/19 22:58 Dose: 999 mls/hr Documented by: [id number] Ioversol (Optiray 320 125ml) 88 ml IV ONCE PRN PRN Reason: Interaction Checking Stop: 10/13/19 00:00 Last Admin: 10/09/19 00:02 Dose: 88 ml Documented by: [id number] Ketorolac Tromethamine (Toradol) 15 mg IV NOW STA Stop: 10/08/19 23:33 Last Admin: 10/08/19 23:38 Dose: 15 mg Documented by: [id number] Lorazepam (Ativan) 1 mg SL NOW STA Stop: 10/08/19 22:51 Last Admin: 10/08/19 22:58 Dose: 1 mg Documented by: [id number] Nitroglycerin (Nitro-Bid 2%) 1 inch EXT NOW STA Stop: 10/09/19 00:10 Last Admin: 10/09/19 00:15 Dose: 1 inch Documented by: [id number] Oxycodone HCl (Roxicodone Immediate Rel) 10 mg PO NOW STA Stop: 10/09/19 01:39 Last Admin: 10/09/19 01:57 Dose: 10 mg Documented by: [id number] Medical Decision Making Differential Diagnosis Differential diagnosis includes acute coronary syndrome, pulmonary embolism, pneumothorax, pericarditis, myocarditis, endocarditis, anxiety, musculoskeletal pain, GERD, costochondritis, pneumonia, among others. Home Medications Current Medication List: was personally reviewed by me Laboratory Data Attestation: I reviewed the patient's lab results. Result diagrams: 10/08/19 22:40 10/08/19 22:40 Lab Results 10/08/19 10/08/19 10/08/19 Range/Units 22:40 22:40 22:40 WBC 12.26 H (4.8-10.8) K/uL RBC 5.19 (4.7-6.1) M/uL Hgb 15.9 (14.0-18.0) g/dL Hct 45.4 (42-52) % MCV 87.5 (80-100) fL MCH 30.6 (25-34) pg MCHC 35.0 (32-36) g/dL RDW Std Deviation 39.6 (36.4-46.3) fL RDW Coeff of Ginny 12.4 (11.5-14.5) % Plt Count 381 (130-400) K/uL MPV 9.0 (7.4-10.4) fL Immature Gran % (Auto) 0.2 % Neut % (Auto) 64.3 % Lymph % (Auto) 28.0 % [place] % (Auto) 4.7 % Eos % (Auto) 2.4 % Baso % (Auto) 0.4 % Immature Gran # (Auto) 0.03 H (0.00-0.02) K/uL Neut # (Auto) 7.87 H (1.4-6.5) K/uL Lymph # (Auto) 3.43 H (1.2-3.4) K/uL [place] # (Auto) 0.58 (0.11-0.59) K/uL Eos # (Auto) 0.30 (0-0.5) K/uL Baso # (Auto) 0.05 (0-0.2) K/uL D-Dimer 550 H* (0-500) ug/L FEU Sodium 136 (136-145) mmol/L Potassium 3.2 L (3.5-5.1) mmol/L Chloride 104 (98-107) mmol/L Carbon Dioxide 25 (21-32) mmol/L Anion Gap 7.0 (3-11) BUN 12 (7-18) mg/dl Creatinine 1.25 (0.6-1.4) mg/dl Est Cr Clr Drug Dosing Not Reportable Est GFR ( Amer) 77.3 Est GFR (Non-Af Amer) 66.7 BUN/Creatinine Ratio 9.4 L (10-20) Glucose 106 H (70-99) mg/dl Calcium 9.2 (8.5-10.1) mg/dl Total Bilirubin 0.5 (0.2-1) mg/dl AST 13 L (15-37) U/L ALT 31 (12-78) U/L Alkaline Phosphatase 75 (45-117) U/L Troponin I < 0.015 (0-0.045) ng/ml Total Protein 8.2 (6.4-8.2) gm/dl Albumin 4.1 (3.4-5.0) gm/dl Globulin 4.1 H (2.5-4.0) gm/dl Albumin/Globulin Ratio 1.0 (0.9-2) TSH 2.080 (0.300-4.500) uIu/ml Imaging Data Attestation: I personally reviewed and interpreted this imaging study as follows: My Impression: CHEST 1 VIEW: No cardiomegaly. Normal mediastinum. No pulmonary consolidation or pneumothorax. Radiologist's Impression: CTA CHEST: No evidence of pulmonary emboli. No aortic dissection or aneurysm. No cardiomegaly. No acute airspace opacities. No pleural effusion or pneumothorax. Scoliosis with multilevel degenerative changes of the spine. Radiologist: Nasrin Julio MD ECG Data Attestation: I personally reviewed and interpreted this ECG as follows: Indication: + chest pain Rate (beats per minute): 112 Rhythm: + sinus tachycardia ECG Intervals/blocks: + Normal QRS ECG ST segments: + ST depression (Lateral) Change: the following changes noted (ST depressions not noted in lateral leads, increased rate) Additional Comments: Repeat EKG performed after tachycardia had improved. Repeat EKG shows a normal sinus rhythm at [address] depressions have resolved. No ischemic findings noted. Blood Pressure Blood Pressure Findings: Elevated blood pressure Blood Pressure Disposition: further management by hospitalist MDM Narrative The patient is a 49-year-old male who presents today complaining of episodic chest pain and palpitations. Labs revealed mild leukocytosis, no anemia or concerning electrolyte abnormalities. Troponin was not elevated. D-dimer found to be elevated at 550, CTA of the chest performed and was negative. Patient's initial EKG did show some lateral ST depressions. This was repeated and was normal. Patient extremely anxious and was given Ativan. He did receive aspirin and nitroglycerin paste. While I do suspect there is likely significant component of anxiety, I cannot rule out cardiac ischemia or arrhythmia. Given the EKG changes, I did elect to speak with the hospitalist service to further evaluate the patient in the hospital. [facility] hospitalist service was consulted and agreed to evaluate patient for further care. Impression & Plan Left-sided chest pain, Palpitations Discharge Plan Visit Data *Final* Discharge Date/Time: 10/09/19 01:49 Chief Complaint: Chest Pain Stated Complaint: CHEST PAIN ED Provider: Thang Amaral ED Midlevel Provider: Megan Martinez Discharge Problem: Left-sided chest pain, Palpitations Patient Disposition: Admitted As Inpatient Discharge Instructions Interventions: ED Discharge Assessment Last Done: 10/09/19 01:49
[2019-10-08 23:18] LABS: Alanine Aminotransferase 31 U/L (12-78); Albumin Level 4.1 gm/dl (3.4-5.0); Aspartate Aminotransferase 13 U/L (15-37); BUN Creatinine Ratio 9.4 (10-20); Blood Urea Nitrogen 12 mg/dl (7-18); Calcium 9.2 mg/dl (8.5-10.1); Carbon Dioxide 25 mmol/L (21-32); Chloride 104 mmol/L (98-107); Est GFR (African American) 77.3; Est GFR (Non-African American) 66.7; Glucose 106 mg/dl (70-99); Potassium 3.2 mmol/L (3.5-5.1); Sodium 136 mmol/L (136-145)
[2019-10-08 23:28] LABS: Alkaline Phosphatase 75 U/L (45-117); Bilirubin,Total 0.5 mg/dl (0.2-1); Globulin 4.1 gm/dl (2.5-4.0); Total Protein 8.2 gm/dl (6.4-8.2); Troponin I < 0.015 ng/ml (0-0.045)
[2019-10-08 23:32] LABS: D Dimer 550 ug/L FEU (0-500)
[2019-10-08] MEDS ORDERED: KETOROLAC TROMETHAMINE 15 MG/ML VIAL IV STA (23:32)
[2019-10-09] MEDS ORDERED: OPTIRAY 320 125ml IV PRN (00:01)
[2019-10-09] MEDS ORDERED: NITROGLYCERIN 2% OINTMENT 30GM TUBE EXT STA (00:09)
[2019-10-09] MEDS ORDERED: ASPIRIN CHEW 324 MG PO STA (00:09)
[2019-10-09] MEDS ORDERED: OXYCODONE HCL IR 5 MG TAB (IMMEDIATE RELEASE) PO STA (01:38)
[2019-10-09] MEDS ORDERED: METOPROLOL TARTRATE 1 MG/ML VIAL IV PRN (02:11)
[2019-10-09] MEDS ORDERED: ONDANSETRON INJ 2 MG/ML 2 ML VIAL IV PRN (02:11)
[2019-10-09] MEDS ORDERED: POLYETHYLENE (MIRALAX) 17 GM PACK PO PRN (02:11)
[2019-10-09] MEDS ORDERED: OXYCODONE HCL IR 5 MG TAB (IMMEDIATE RELEASE) PO PRN (02:11)
[2019-10-09] MEDS ORDERED: ACETAMINOPHEN 325 MG TAB PO PRN (02:11)
--- NOTE | 2019-10-09 02:36 | History and Physical Report ---
DATE OF ADMISSION: 10/09/2019 CHIEF COMPLAINT: Chest pain. HISTORY OF PRESENT ILLNESS: This is a 49-year-old male with past medical history significant for reflux esophagitis, Trotter's esophagus without dysplasia presents with chest pain. The patient has history of chest pain and esophagitis. As per patient he recently had an EGD done which was okay. He says he is noncompliant with blood pressure medication, he takes it on and off. Last few days he noticing his heart racing and then had a ringing noise in the ear and headache and chest discomfort . He checked his blood pressure, it was high and he took the blood pressure medication. It happened a few times and yesterday when it happened, he passed out, he does not know how long he passed out, but after that he felt fine and he kept it to himself. He lives alone and again today after eating dinner, he noticed again same symptoms, felt palpitations, ringing in the ears and headache and chest discomfort. Generally, when he gets panic attacks he tries to meditate, but it was not helping. His symptoms comes on their own and lasts about 1 hour and then eases off and then he feels tired. He says he recently started taking amitriptyline and concerned if it causing the symptoms. Because of ongoing symptoms, he came to the hospital today. His initial EKG showed some sinus tachycardia with some Q-waves in inferior leads. Currently, resting comfortably and hemodynamically stable. He says he still has mild chest discomfort and mild headache. Was nauseous earlier, no vomiting. Today during the episode he had some sweating. Denies any earache, no runny nose, no sore throat, no cough, no fever, no chills, no shortness of breath, no abdominal pain, somewhat constipated. But denies any blood in the stools or black stools. Says he is micturating frequently, but denies any burning sensation or hematuria. No swelling in the legs. ALLERGIES: CLINDAMYCIN, PENICILLINS. PAST MEDICAL HISTORY: As mentioned above. PAST SURGICAL HISTORY: Colonoscopy, multiple EGDs, laparoscopic cholecystectomy, umbilical hernia repair. MEDICATIONS: The patient at home on Zantac 150 mg p.o. b.i.d., amitriptyline 12.5 mg p.o. at bedtime, OxyContin 10 mg p.o. q. 12 hours, oxycodone 10 mg p.o. q. 6 hours, Protonix 40 mg p.o. b.i.d., lisinopril 20 mg p.o. daily. FAMILY HISTORY: No significant family history. SOCIAL HISTORY: Currently living alone. Smokes half pack a day. No alcohol use, no drug use. REVIEW OF SYMPTOMS: As per HPI. Rest of review of symptoms are negative. PHYSICAL EXAMINATION: GENERAL: The patient is of moderate build, not in acute distress. VITAL SIGNS: Temperature 36.3, pulse 74, respiratory rate 16, blood pressure is 163/109, oxygen 95% on room air. HEENT: Pupils equal, round, reactive to light. Extraocular muscles intact. NECK: No neck masses. Supple. CARDIOVASCULAR: S1, S2 heard, regular rate and rhythm, no murmur, no gallop. RESPIRATORY SYSTEM: Normal AP diameter. No accessory muscle use. No wheezing, no crackles. ABDOMEN: Soft, bowel sounds present, nontender. No distention. CENTRAL NERVOUS SYSTEM: Cranial nerves II-XII grossly intact. Nonfocal. EXTREMITIES: No edema, no erythema. LABORATORY DATA: WBC 12.2, hemoglobin 15.9, hematocrit 45.4, platelets 381. D-dimer 550. Sodium 136, potassium 3.2, chloride 104, bicarbonate 25, BUN 12, creatinine 1.25, serum glucose 106, calcium 9.2, total bilirubin 0.5, AST 13, ALT 31, alkaline phosphatase 75. Troponin I less than 0.015. TSH 2.08. IMAGING: Chest x-ray, no acute findings. CTA of the chest pending. EKG: Initial EKG on presentation, sinus tachycardia at 112. Possible left atrial enlargement, Q-waves in inferior leads. Repeat EKG: Normal sinus rhythm, rate of 85. ASSESSMENT AND PLAN: This is a 49-year-old male who presents with chest discomfort. 1. Chest pain: Rule out acute coronary syndrome. Risk factors of high blood pressure and age. Initial workup is negative. We will follow the serial cardiac enzymes, echocardiogram. D-dimer was elevated, but CTA of the chest, results are pending. We will follow the final results. Monitor in tele floor. N.p.o. Echocardiogram and consult cardiology in a.m. for further recommendations. 2. Hypertension: The patient is noncompliant with blood pressure medications, his symptoms of tachycardia, ringing in the ear in the day could be from high blood pressure , we will continue his home lisinopril and IV Lopressor p.r.n. We will monitor the blood pressure in the hospital. Follow echocardiogram. 3. Chronic pain: Continue his home pain medicine. 4. Esophagitis: Continue his Protonix. 5. Deep venous thrombosis prophylaxis, sequential compression devices. DISPOSITION: Observe in tele floor. Expect to discharge home and follow with family doctor. Level 1 full code. MTDD
[2019-10-09 06:18] LABS: Basophils # (auto) 0.06 K/uL (0-0.2); Basophils % (auto) 0.6 %; Eosinophils # (auto) 0.27 K/uL (0-0.5); Eosinophils % (auto) 2.9 %; Hematocrit (blood only) 38.9 % (42-52); Hemoglobin 13.4 g/dL (14.0-18.0); Immature Granulocytes # (auto) 0.01 K/uL (0.00-0.02); Immature Granulocytes % (auto) 0.1 %; Lymphocytes # (auto) 2.94 K/uL (1.2-3.4); Lymphocytes % (auto) 31.3 %; Mean Corpuscular Hemoglobin 30.5 pg (25-34); Mean Corpuscular Hgb Conc 34.4 g/dL (32-36); Mean Corpuscular Volume 88.4 fL (80-100); Monocytes # (auto) 0.62 K/uL (0.11-0.59); Monocytes % (auto) 6.6 %; Neutrophils # (auto) 5.48 K/uL (1.4-6.5); Neutrophils % (auto) 58.5 %; Platelet Count 267 K/uL (130-400); RDW Coefficient of Variation 12.5 % (11.5-14.5); RDW Standard Deviation 40.4 fL (36.4-46.3); White Blood Count 9.38 K/uL (4.8-10.8)
[2019-10-09 07:01] LABS: BUN Creatinine Ratio 9.4 (10-20); Calcium 8.9 mg/dl (8.5-10.1); Est GFR (African American) 95.5; Est GFR (Non-African American) 82.4; Magnesium 1.9 mg/dl (1.8-2.4); Potassium 3.5 mmol/L (3.5-5.1)
--- NOTE | 2019-10-09 07:09 | XRay Report ---
XR chest 1V portable HISTORY: 49 years-old Male chest pain acute atypical chest pain COMPARISON: CTA of the chest of same day, chest radiograph 02/25/2018 TECHNIQUE: Portable AP view of the chest FINDINGS: Cardiomediastinal and hilar silhouettes are within normal limits. No pneumothorax, pleural effusion, airspace consolidation or overt pulmonary edema. Levoscoliosis of the mid to lower thoracic spine. Mu ltilevel degenerative changes of the spine. IMPRESSION: No acute process. ACT 112: Negative or not required by law. The above report was generated using voice recognition software. It may contain grammatical, syntax o r spelling errors. Electronically signed by: Walter Scales M.D. 10/09/2019 7:07 AM
--- NOTE | 2019-10-09 07:42 | CT Scan Report ---
CT angio chest PE protocol CT DOSE: 430.85 mGy.cm HISTORY: 49 years-old Male with tachycardia, chest pain. Tachycardia with acute atypical chest pain TECHNIQUE: Multiple CTA images of the chest were obtained after the intravenous administration of 116 ml Optiray 320. Coronal and sagittal MIPS were obtained from the axial data set and were submitted for review. All measurements were obtained according to NASCET criteria. A dose lowering technique w as utilized adhering to the principles of ALARA. COMPARISON: Chest radiograph of same day, CTA chest 02/19/2018 FINDINGS: CTA: The heart is upper limits of normal in size without pericardial effusion. No thoracic aortic aneurysm or dissection. Bovine morphology of aortic arch. Patency of the imaged great vessels. The pulmonary arterial tree is opacified to the level of the proximal subsegmental branches and demonstrates no def inite filling defects to suggest pulmonary thromboembolic disease. Respiratory motion artifact limits evaluation of the left lung base. There are apparent ill-defined filling defects within subsegmental branches of the left lung base which are favored to be artifactual. CT CHEST: Unremarkable thyroid. No adenopathy by CT size criteria. No pneumothorax or pleural effusion. Mild waters bsegmental bibasilar groundglass and linear pleural-based consolidative opacities compatible with ate lectasis. There are no suspicious pulmonary nodules or masses. No airspace consolidation typical for pneumonia. Central airways appear patent. Mild nonspecific wall thickening of the distal esophagus. Cholecystectomy. Soft tissues are unremarka ble. No acute fracture or suspicious bone lesion identified. Degenerative changes of the shoulders an d spine. Convex right curvature of the midthoracic spine with increased kyphosis. IMPRESSION: 1. Study is mildly motion degraded. No definite evidence of pulmonary thromboembolic disease. 2. No pleural effusion, adenopathy or airspace consolidation typical for pneumonia. ACT 112: Negative or not required by law. The above report was generated using voice recognition software. It may contain grammatical, syntax o r spelling errors. Electronically signed by: Walter Scales M.D. 10/09/2019 7:40 AM
[2019-10-09] MEDS ORDERED: PANTOprazole 40 MG TAB PO SCH (09:00)
[2019-10-09] MEDS ORDERED: lisinopriL 20 MG TAB PO SCH (09:00)
--- NOTE | 2019-10-09 09:38 | Cardiology Consultation ---
Date of Consultation October 09, 2019 Assessment & Plan (1) Palpitations: (2) Left-sided chest pain: (3) Hypertension: (4) Cervical disc disease: After patient was initially assessed by the undersigned in the PCU, he underwent exercise stress echocardiogram which was supervised independently by the undersigned. He exercised into the third stage of a standard Quentin protocol with appropriate heart rate and blood pressure response, no symptoms suggestive angina were observed. Normal EKG and echocardiographic response to exercise. At present, I do not think the patient's presentation is suggestive of an acute coronary syndrome. Although he seems to have postprandial palpitations, his resting heart rate was in the 50s while observed overnight on telemetry, and I do not think there is enough room for us to add an AV ryan blocking agent. I would recommend that the patient continues his PPI therapy for his Trotter's esophagus and GERD, and continues lisinopril for treatment of his hypertension. He was counseled on the importance of adhering to his lisinopril dosing on a daily basis. Smoking cessation recommended. Patient stable from a cardiac perspective for discharge. History of Present Illness Attending Physician: Ginger Posey MD History of Present Illness Neptali Bernal is a 49-year-old male seen in cardiology consultation due to com plaint of palpitations, ringing in his ears, chest and shoulder discomfort. The patient does not follow routinely with cardiology. He did however have an exercise stress echocardiogram performed at the [facility] in 2013 which was negative for ischemia at that time. His primary care provider is Dr. Donald Velazquez in [place], and he has also been followed recently by Dr Cory Carter at [facility]. He has a history of cervical disc disease for which he is on amitriptyline and oxycodone, hypertension for which he is to take lisinopril 20 mg daily, that he has been nonadherent to this medication, and Trotter's esophagus for which he is on Protonix. He had recently had a repeat EGD performed at [facility] on 09/06/2019 with findings of Trotter's esophagus, and ongoing treatment with Protonix 40 mg twice daily was recommended as well as a surveillance endoscopy at 1 year interval. Patient states that he has been home recently. 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 He notes recently he has been experiencing a ringing sensation in his ears, and occasional headaches. He has been taking his blood pressure at home with his home cuff on his upper arm and had noted elevated readings with systolic blood pressures in the 160-170 range. He therefore has been trying to be more adherent to taking his lisinopril on a regular basis. Approximately 5 days ago, he took his amitriptyline, and went to bed, and shortly afterward felt as if he "blacked out ". He notes recent episodes of feeling like it is heart races after meals. When he takes his heart rate with this his heart rate is in the 90 bpm range. He also has an associated symptom of chest and left upper arm discomfort when this occurs. His symptoms typically take place after eating and with emotional distress, not with physical exertion. At the time of my assessment of the patient in the PCU, he was comfortable. Family History: Denies history of coronary heart disease in his parents or siblings. Social history: 1/2 pack/day cigarette smoker. Occupational history as above. Lives alone. Allergies Allergy/AdvReac Type Severity Reaction Status Date / Time clindamycin Allergy Severe swelling; Verified 10/08/19 23:24 wheezing Penicillins Allergy Severe ANAPHYLAXIS Verified 10/08/19 23:24 Home Medications Home Medications Medication Instructions Recorded Confirmed Type lisinopril 20 mg PO DAILY #0 tab 10/24/12 10/08/19 History pantoprazole 40 mg PO BID #0 06/22/13 10/08/19 History ranitidine HCl [Zantac] 150 mg PO BID #0 tab 06/22/13 10/08/19 History oxycodone 10 mg PO Q6H PRN #0 01/19/16 10/08/19 History Patient History Medical History Back pain (Acute 05/30/13) Cervical disc disease (Acute) Cervical spinal stenosis (Acute) Esophagitis (Inactive) Food impaction of esophagus (Acute) Hypertension (Chronic) Neck pain (Acute) Stomach problems (Chronic) Surgical History Hx of cholecystectomy (Chronic) Social History Preferred Language: Kazakh Beliefs That Will Affect Care: None Current Living Situation: Alone Feels Safe at Home: Yes Safety Concerns: Feels Safe At This Time Smoking Status: Former smoker Hx Substance Use: No Review of Systems Review of Systems: All systems reviewed & are unremarkable except as noted in HPI & below Physical Exam Physical Exam: Temp Pulse Resp BP Pulse Ox 36.5 C 51 L 16 118/69 96 10/09/19 08:00 10/09/19 08:00 10/09/19 08:00 10/09/19 08:00 10/09/19 08:00 Constitutional: WD/WN, vitals as above Respiratory: normal respiratory effort, lungs clear to auscultation Cardiovascular: RRR, no murmur, no edema Vessels: no JVD Extremities: no edema Gastrointestinal (Abdomen): normal bowel sounds, soft, nontender, no hepatosplenomegaly Neurologic: PERRL, EOMI, accommodation nl, no face palsy, no dysarthria Results & Data ([facility]) Vital Signs (Past 12 Hours) Vital Signs Temp Pulse Pulse Resp BP BP Pulse Ox 10/09/19 08:00 36.5 C 54 L 51 L 16 118/69 96 10/09/19 05:01 36.3 C L 55 L 18 103/58 L 96 10/09/19 02:03 36.7 C 87 18 160/84 H 96 10/09/19 01:30 15 148/99 H 95 10/09/19 01:01 94 H 16 163/109 H 95 10/09/19 00:30 91 H 15 164/102 H 97 10/08/19 23:00 88 17 158/96 H 98 10/08/19 22:53 103 H 19 100 10/08/19 22:46 100 10/08/19 22:39 96 H 12 177/127 H 99 10/08/19 22:28 36.3 C L 103 H 19 171/104 H 100 Laboratory Results Cardiac Enzymes 10/08/19 10/09/19 Range/Units 22:40 05:30 AST 13 L (15-37) U/L Troponin I < 0.015 < 0.015 (0-0.045) ng/ml CBC 10/08/19 10/09/19 Range/Units 22:40 05:30 WBC 12.26 H 9.38 (4.8-10.8) K/uL RBC 5.19 4.40 L (4.7-6.1) M/uL Hgb 15.9 13.4 L (14.0-18.0) g/dL Hct 45.4 38.9 L (42-52) % Plt Count 381 267 (130-400) K/uL Neut # (Auto) 7.87 H 5.48 (1.4-6.5) K/uL Lymph # (Auto) 3.43 H 2.94 (1.2-3.4) K/uL Rosebud # (Auto) 0.58 0.62 H (0.11-0.59) K/uL Eos # (Auto) 0.30 0.27 (0-0.5) K/uL Baso # (Auto) 0.05 0.06 (0-0.2) K/uL Comprehensive Metabolic Panel 10/08/19 10/09/19 Range/Units 22:40 05:30 Sodium 136 139 (136-145) mmol/L Potassium 3.2 L 3.5 (3.5-5.1) mmol/L Chloride 104 108 H (98-107) mmol/L Carbon Dioxide 25 25 (21-32) mmol/L BUN 12 10 (7-18) mg/dl Creatinine 1.25 1.05 (0.6-1.4) mg/dl Glucose 106 H 93 (70-99) mg/dl Calcium 9.2 8.9 (8.5-10.1) mg/dl AST 13 L (15-37) U/L ALT 31 (12-78) U/L Alkaline Phosphatase 75 (45-117) U/L Total Protein 8.2 (6.4-8.2) gm/dl Albumin 4.1 (3.4-5.0) gm/dl Intake and Output 10/08/19 10/09/19 10/09/19 22:59 06:59 14:59 Intake Total 1000 / 1000 Output Total 425 / 425 Balance 575 / 575 Intake: IV 1000 / 1000 Nss 1000ML 1,000 ml @ 999 mls/ 1000 / 1000 hr IV .Q1H1M LYNDON Rx#:[id number] Output: Urine 425 / 425 Other: Other Intake Source sips Weight 86.3 kg Diagnostic Findings A CT angiogram was performed in follow-up of elevated d-dimer, the study was mildly technically limited due to respiratory motion artifact, per the radiology report, no large vessel venous thrombolic disease noted. EKG performed 10/08/2019 at 2233 hrs. and reviewed independently by the undersigned revealed sinus tachycardia 112 bpm, possible left atrial enlargement, possible age-indeterminate inferior infarct tracing performed , sinus tachycardia replaced sinus bradycardia, and the rate had increased by 51 bpm. EKG performed 10/09/2019 2004 23 revealed sinus rhythm at 85 bpm, ongoing age- indeterminate inferior infarct cannot be excluded based on leads III and aVF. Resting echocardiogram performed today and reviewed independently by the undersigned: Mild concentric left ventricular hypertrophy is present Normal left ventricular wall motion The left ventricular ejection fraction is normal at 55 to 60%, there is no significant valvular heart disease.
--- NOTE | 2019-10-09 12:33 | Discharge Summary ---
Date of Service October 09, 2019 Admission HPI Per Admitting Provider DICTATED BY: Alonso Sorto MD DATE OF ADMISSION: 10/09/2019 CHIEF COMPLAINT: Chest pain. HISTORY OF PRESENT ILLNESS: This is a 49-year-old male with past medical history significant for reflux esophagitis, Trotter's esophagus without dysplasia presents with chest pain. The patient has history of chest pain and esophagitis. As per patient he recently had an EGD done which was okay. He says he is noncompliant with blood pressure medication, he takes it on and off. Last few days he noticing his heart racing and then had a ringing noise in the ear and headache and chest discomfort . He checked his blood pressure, it was high and he took the blood pressure medication. It happened a few times and yesterday when it happened, he passed out, he does not know how long he passed out, but after that he felt fine and he kept it to himself. He lives alone and again today after eating dinner, he noticed again same symptoms, felt palpitations, ringing in the ears and headache and chest discomfort. Generally, when he gets panic attacks he tries to meditate, but it was not helping. His symptoms comes on their own and lasts about 1 hour and then eases off and then he feels tired. He says he recently started taking amitriptyline and concerned if it causing the symptoms. Because of ongoing symptoms, he came to the hospital today. His initial EKG showed some sinus tachycardia with some Q-waves in inferior leads. Currently, resting comfortably and hemodynamically stable. He says he still has mild chest discomfort and mild headache. Was nauseous earlier, no vomiting. Today during the episode he had some sweating. Denies any earache, no runny nose, no sore throat, no cough, no fever, no chills, no shortness of breath, no abdominal pain, somewhat constipated. But denies any blood in the stools or black stools. Says he is micturating frequently, but denies any burning sensation or hematuria. No swelling in the legs. Principal Diagnosis CHEST PAIN /NEGATIVE CARDIAC STRESS TEST ,NO EVIDENCE OF HEART DISEASE Discharge Exam Constitutional WD/WN, vitals as above Eyes PERRL, conjunctivae normal, anicteric sclerae ENMT external ear and nose normal, oropharynx normal Neck trachea midline, no thyromegaly Respiratory normal respiratory effort, lungs clear to auscultation Cardiovascular RRR, no murmur, no edema Gastrointestinal (Abdomen) normal bowel sounds, soft, nontender, no hepatosplenomegaly Musculoskeletal no cyanosis or clubbing, extremities motor strength 5/5 Neurologic PERRL, EOMI, accommodation nl, no face palsy, no dysarthria Psychiatric A+Ox3, euthymic affect Discharge Data Allergies Allergy/AdvReac Type Severity Reaction Status Date / Time clindamycin Allergy Severe swelling; Verified 10/08/19 23:24 wheezing Penicillins Allergy Severe ANAPHYLAXIS Verified 10/08/19 23:24 Consultations 10/09/19 00:32 ED Decision to Admit Stat 10/09/19 08:00 Consult Cardiology Routine Ordered Studies 10/08/19 23:42 CT angio chest PE protocol Urgent Hospital Course (1) Left-sided chest pain: symptoms has resolved non cardiac no evidence of angina appreciate input from Cardiology cardiac stress test shows no evidence of ischemia per cardiology stable to be discharged home today HTN : Cont home medications pt is counselled for low salt diet hospital follow up with family physician in a week Total Time Total Time Spent Total Time Spent (In Minutes): 30 mins Total Time Includes: Discharge Planning and Medication Reconciliation Discharge Plan Discharge Items Patient Disposition: Home - Self-Care Reason For Visit: CHEST PAIN Discharge Diagnosis: CHEST PAIN /NEGATIVE CARDIAC STRESS TEST ,NO EVIDENCE OF HEART DISEASE Activity: Resume your previous activity Non-emergency contact: Primary Care Provider Call non-emergency contact if: you have any medication questions Follow-up/Referrals: Donald Velazquez D.O. [Primary Care Provider] - (PLEASE CALL TO SCHEDULE A HOSPITAL FOLLOW UP IN A WEEK ) Diet: Heart Healthy Addtl Attending Provider Instructions: IT IS VERY IMPORTANT TO TAKE MEDICATION - DIRECTED BY YOUR PHYSICIAN IMPORTANT TO KEEP YOUR BLOOD PRESSURE WILL CONTROLLED AVOID ADDING SALT IN YOUR MEALS AND AVOID CANNED FOOD ( HAS HIGH SODIUM CONTENT FOR PRESERVATION ) CALL YOUR FAMILY PHYSICIAN OR RETURN TO ER WITH ANY RECURRENCE OF CHEST PAIN /SHORTNESS OF BREATH OR DIZZY SPELL Pending Studies at Discharge: No Stand-Alone Forms: [employer], Smoking Cessation Medications and DC Order Prescriptions: Continued lisinopril 20 mg Tablet 20 mg PO DAILY Qty: 0 RF: 0 pantoprazole 40 mg Tablet,Delayed Release (Dr/Ec) 40 mg PO BID Qty: 0 RF: 0 ranitidine HCl [Zantac] 150 mg Tablet 150 mg PO BID Qty: 0 RF: 0 oxycodone 10 mg Tablet 10 mg PO Q6H PRN (Reason: Pain) Qty: 0 RF: 0 Discharge Orders: Discharge Order (Routine); Ordered 10/09/19 Ordered By: Ginger Gale/Other Patient Handouts: Blood Pressure Self Monitor, Diet Low Salt Dc, BP Check Steps Admission Data Admit Date/Time: 10/09/19 01:25 Attending Provider: Ginger Posey Admit Provider: Alonso Sorto Primary Care Provider: Donald Velazquez Other Providers: Daniel Park Other Interventions: Discharge Summary Assessment (RN) Last Done: 10/09/19 12:48 DC Date/Time DO NOT enter until pt leaves facility: 10/09/19 13:20
--- NOTE | 2019-10-09 17:18 | Electrocardiogram Report ---
Test Reason : Blood Pressure : / mmHG Vent. Rate : 085 BPM Atrial Rate : 085 BPM P-R Int : 154 ms QRS Dur : 088 ms QT Int : 390 ms P-R-T Axes : 035 007 011 degrees QTc Int : 464 ms Normal sinus rhythm Normal ECG When compared with ECG of 08-OCT-2019 22:33, (unconfirmed) No significant change was found Confirmed by Cory Minor ([id number]) on 10/09/2019 5:18:40 PM Referred By: REFERRED SELF Confirmed By:Cory Minor
--- NOTE | 2019-10-09 17:18 | Electrocardiogram Report ---
Test Reason : Blood Pressure : / mmHG Vent. Rate : 112 BPM Atrial Rate : 112 BPM P-R Int : 202 ms QRS Dur : 088 ms QT Int : 316 ms P-R-T Axes : 051 010 -07 degrees QTc Int : 431 ms Sinus tachycardia Possible Left atrial enlargement Possible Inferior infarct , age undetermined Abnormal ECG When compared with ECG of 25-FEB-2018 12:22, Vent. rate has increased BY 51 BPM Confirmed by Cory Minor ([id number]) on 10/09/2019 5:18:24 PM Referred By: REFERRED SELF Confirmed By:Cory Minor
== END 2019-10-09 13:20 | disposition home or self-care (01) ==
LOC: ED 22:26 → 2S 22:26 → SUATTDRO 10-09 01:25 → 2S 10-09 01:49